=== PATIENT | male | born 1940 | race Caucasian/White ===

== ENCOUNTER → 2016-06-15 | Outpatient (REF) | payer MEDICARE ==
[2016-06-15 12:34] LABS: ALBUMIN/GLOBULIN RATIO 1.29 (1.00-1.93); ALKALINE PHOSPHATASE 56 U/L (45-117); ALT/SGPT 44 U/L (12-78); ANION GAP 13 MEQ/L (8-16); AST/SGOT 20 U/L (15-37); BILIRUBIN,TOTAL 0.4 MG/DL (0.2-1.0); BLOOD UREA NITROGEN 36 MG/DL (7-18); CALCIUM LEVEL 9.2 MG/DL (8.8-10.2); CARBON DIOXIDE LEVEL 24 MEQ/L (21-32); CHLORIDE LEVEL 104 MEQ/L (98-107); CREATININE FOR GFR 1.86 MG/DL (0.70-1.30); FERRITIN 156 NG/ML (26-388); GLOMERULAR FILTRATION RATE 37.9 (>42); GLUCOSE, FASTING 142 MG/DL (83-110); PERCENT SATURATION 19.7 % (19.7-37.4); POTASSIUM SERUM 4.6 MEQ/L (3.5-5.1); SODIUM LEVEL 141 MEQ/L (136-145); TOTAL IRON BINDING CAPACITY 330 UG/DL (250-450); TOTAL PROTEIN 7.1 GM/DL (6.4-8.2)
[2016-06-15 12:39] LABS: VITAMIN B12 LEVEL > 2000 PG/ML (247-911)
[2016-06-15 12:48] LABS: BASO # 0.1 K/mm3 (0.0-0.2); BASO % 0.8 % (0.0-1.0); EOS # 0.2 K/mm3 (0.0-0.50); EOS % 2.3 % (0.0-3.0); LARGE UNSTAINED CELL # 0.3 K/mm3 (0.0-0.4); LARGE UNSTAINED CELL % 2.8 % (0.0-4.0); LYMPH % 22.1 % (24.0-44.0); MEAN CORPUSCULAR HEMOGLOBIN 29.5 pg (27.0-33.0); MEAN CORPUSCULAR HGB CONC 33.4 g/dl (32.0-36.5); MEAN CORPUSCULAR VOLUME 88.3 fl (80.0-96.0); MONO # 0.4 K/mm3 (0.0-0.8); MONO % 4.3 % (0.0-5.0); NEUTROPHILS # 6.1 K/mm3 (1.8-7.7); NEUTROPHILS % 67.7 % (36.0-66.0); PLATELET COUNT, AUTOMATED 328 k/mm3 (150-450); RED CELL DISTRIBUTION WIDTH 13.4 % (11.5-14.5)
== END ==
LOC: M SFHCPLAZ 08:47
PROVIDERS: ATTEND Family Medicine
DX: E11.22 Type 2 diabetes mellitus with diabetic chronic kidney disease (principal); N18.3 Chronic kidney disease, stage 3 (moderate)

== ENCOUNTER → 2016-10-25 | Outpatient (REF) | payer MEDICARE ==
[2016-10-25 14:47] LABS: ALBUMIN 3.9 GM/DL (3.2-5.2); ALBUMIN/GLOBULIN RATIO 1.22 (1.00-1.93); ALKALINE PHOSPHATASE 52 U/L (45-117); ALT/SGPT 50 U/L (12-78); ANION GAP 12 MEQ/L (8-16); AST/SGOT 25 U/L (15-37); BILIRUBIN,TOTAL 0.5 MG/DL (0.2-1.0); BLOOD UREA NITROGEN 24 MG/DL (7-18); CARBON DIOXIDE LEVEL 24 MEQ/L (21-32); CHLORIDE LEVEL 103 MEQ/L (98-107); CHOLESTEROL LEVEL 135 MG/DL (<200); CREATININE FOR GFR 1.68 MG/DL (0.70-1.30); GLOMERULAR FILTRATION RATE 42.6 (>42); GLUCOSE, FASTING 165 MG/DL (83-110); POTASSIUM SERUM 4.6 MEQ/L (3.5-5.1); SODIUM LEVEL 139 MEQ/L (136-145); TOTAL PROTEIN 7.1 GM/DL (6.4-8.2); TRIGLYCERIDES LEVEL 225 MG/DL (<150)
== END ==
LOC: M SFHCPLAZ 08:14
PROVIDERS: ATTEND Family Medicine
DX: E78.2 Mixed hyperlipidemia (principal); E11.9 Type 2 diabetes mellitus without complications; E55.9 Vitamin D deficiency, unspecified

== ENCOUNTER → 2017-02-23 | Outpatient (REF) | payer MEDICARE ==
[2017-02-23 13:22] LABS: ALBUMIN 3.9 GM/DL (3.2-5.2); ALBUMIN/GLOBULIN RATIO 1.18 (1.00-1.93); BILIRUBIN,TOTAL 0.4 MG/DL (0.2-1.0); CREATININE FOR GFR 1.63 MG/DL (0.70-1.30); POTASSIUM SERUM 4.5 MEQ/L (3.5-5.1); TOTAL PROTEIN 7.2 GM/DL (6.4-8.2)
[2017-02-23 13:57] LABS: BASO # 0.1 K/mm3 (0.0-0.2); BASO % 0.7 % (0.0-1.0); EOS # 0.3 K/mm3 (0.0-0.50); LARGE UNSTAINED CELL # 0.3 K/mm3 (0.0-0.4); LARGE UNSTAINED CELL % 2.8 % (0.0-4.0); LYMPH # 2.5 K/mm3 (1.5-4.5); LYMPH % 26.8 % (24.0-44.0); MEAN CORPUSCULAR HEMOGLOBIN 29.9 pg (27.0-33.0); MEAN CORPUSCULAR HGB CONC 33.1 g/dl (32.0-36.5); MEAN CORPUSCULAR VOLUME 90.4 fl (80.0-96.0); MONO # 0.5 K/mm3 (0.0-0.8); MONO % 5.3 % (0.0-5.0); NEUTROPHILS # 5.7 K/mm3 (1.8-7.7); NEUTROPHILS % 61.3 % (36.0-66.0); PLATELET COUNT, AUTOMATED 352 k/mm3 (150-450); WHITE BLOOD COUNT 9.3 K/mm3 (4.0-10.0)
== END ==
LOC: M SFHCPLAZ 08:13
PROVIDERS: ATTEND Family Medicine
DX: N18.3 Chronic kidney disease, stage 3 (moderate) (principal); E11.9 Type 2 diabetes mellitus without complications; Z12.5 Encounter for screening for malignant neoplasm of prostate
CPT/HCPCS: 36415; 80053; 81001; 82043; 83036; 85025; G0103

== ENCOUNTER → 2017-03-10 | Outpatient (CLI) | payer MEDICARE ==
--- NOTE | 2017-03-14 20:46 | SLEEPHOME ---
DATE OF PROCEDURE: 03/10/2017 REFERRING PROVIDER: Dr. Andrade INTERPRETATION: Diagnostic home sleep testing was performed due to concern for the obstructive sleep apnea syndrome. 9 hours and 59 minutes of data were reviewed. There were 4 hours and 59 minutes of time spent in bed. During the interval marked time in bed, there were 305 respiratory events identified of 10 seconds in duration or greater for a respiratory disturbance index of 61.2. The events were complex, 144 central and 14 mixed apneas were recorded. The patient's baseline pulse rate was 50 beats per minute. Pulse rate ranged 44 to 72. Baseline saturation was 88.9%. Lowest oxygen saturation recorded was 65%. Testing was performed in both the supine and nonsupine positions. IMPRESSION: Very abnormal home sleep test with repetitive respiratory events and oxygen desaturations to 65% and a respiratory event index of 61.2 is consistent with obstructive sleep apnea syndrome. The frequency of central events suggests a complex disorder. RECOMMENDATION: Given the severity and complexity of events identified, the patient should be referred for formal sleep evaluation and in laboratory pressure titration. Likely, a bilevel device with backup rate will be necessary given the frequency of central apneas.
== END ==
LOC: M SLEEP HO 11:53
PROVIDERS: ATTEND Family Medicine
DX: G47.33 Obstructive sleep apnea (adult) (pediatric) (principal)

== ENCOUNTER → 2017-07-04 | Outpatient (REF) | payer MEDICARE ==
[2017-07-04 12:34] LABS: ALBUMIN 4.1 GM/DL (3.2-5.2); ALBUMIN/GLOBULIN RATIO 1.24 (1.00-1.93); ALKALINE PHOSPHATASE 50 U/L (45-117); ALT/SGPT 43 U/L (12-78); ANION GAP 7 MEQ/L (8-16); AST/SGOT 23 U/L (7-37); BILIRUBIN,TOTAL 0.6 MG/DL (0.2-1.0); BLOOD UREA NITROGEN 27 MG/DL (7-18); CALCIUM LEVEL 9.3 MG/DL (8.8-10.2); CARBON DIOXIDE LEVEL 27 MEQ/L (21-32); CHLORIDE LEVEL 106 MEQ/L (98-107); CREATININE FOR GFR 1.79 MG/DL (0.70-1.30); GLOMERULAR FILTRATION RATE 39.5 (>42); GLUCOSE, FASTING 145 MG/DL (70-100); POTASSIUM SERUM 4.7 MEQ/L (3.5-5.1); SODIUM LEVEL 140 MEQ/L (136-145); TOTAL PROTEIN 7.4 GM/DL (6.4-8.2)
[2017-07-04 12:40] LABS: BASO # 0.1 10^3/uL (0.0-0.2); BASO % 0.6 % (0.0-1.0); EOS # 0.2 10^3/uL (0.0-0.50); EOS % 2.1 % (0.0-3.0); HEMATOCRIT 44.7 % (42.0-52.0); HEMOGLOBIN 14.8 g/dl (14.0-18.0); IMMATURE GRANULOCYTE # 0.1 10^3/uL (0-0); IMMATURE GRANULOCYTE % 0.5 % (0-0); LYMPH # 2.7 10^3/uL (1.5-4.5); LYMPH % 24.4 % (24.0-44.0); MEAN CORPUSCULAR HEMOGLOBIN 29.1 pg (27.0-33.0); MEAN CORPUSCULAR HGB CONC 33.1 g/dl (32.0-36.5); MEAN CORPUSCULAR VOLUME 87.8 fl (80.0-96.0); MONO # 0.6 10^3/uL (0.0-0.8); MONO % 5.7 % (0.0-5.0); NEUTROPHILS # 7.4 10^3/uL (1.8-7.7); NEUTROPHILS % 66.7 % (36.0-66.0); PLATELET COUNT, AUTOMATED 334 10^3/uL (150-450); RED BLOOD COUNT 5.09 10^6/uL (4.30-6.10); WHITE BLOOD COUNT 11.2 10^3/uL (4.0-10.0)
[2017-07-04 12:41] LABS: ESTIMATED AVERAGE GLUCOSE 160 MG/DL (60-110); HEMOGLOBIN A1c 7.2 %
[2017-07-04 13:06] LABS: TOTAL 25(OH) VITAMIN D 31.5 NG/ML (30.0-100.0)
== END ==
LOC: M SFHCPLAZ 07:50
DX: N18.3 Chronic kidney disease, stage 3 (moderate) (principal); E11.9 Type 2 diabetes mellitus without complications; E55.9 Vitamin D deficiency, unspecified
CPT/HCPCS: 80053

== ENCOUNTER → 2018-03-12 | Outpatient (REF) | payer MEDICARE ==
[2018-03-12 12:39] LABS: BASO # 0.1 10^3/uL (0.0-0.2); EOS # 0.3 10^3/uL (0.0-0.50); EOS % 3.1 % (0.0-3.0); HEMATOCRIT 42.6 % (42.0-52.0); HEMOGLOBIN 14.3 g/dl (13.5-17.5); IMMATURE GRANULOCYTE % 0.5 % (0-3.0); LYMPH # 2.7 10^3/uL (1.5-4.5); LYMPH % 28.6 % (24.0-44.0); MEAN CORPUSCULAR HEMOGLOBIN 29.3 pg (27.0-33.0); MEAN CORPUSCULAR HGB CONC 33.6 g/dl (32.0-36.5); MEAN CORPUSCULAR VOLUME 87.3 fl (80.0-96.0); MONO # 0.6 10^3/uL (0.0-0.8); MONO % 6.6 % (0.0-5.0); NEUTROPHILS # 5.6 10^3/uL (1.8-7.7); NEUTROPHILS % 60.2 % (36.0-66.0); PLATELET COUNT, AUTOMATED 326 10^3/uL (150-450); RED BLOOD COUNT 4.88 10^6/uL (4.30-6.10); RED CELL DISTRIBUTION WIDTH 14.2 % (11.5-14.5); WHITE BLOOD COUNT 9.3 10^3/uL (4.0-10.0)
[2018-03-12 12:59] LABS: ALBUMIN 4.1 GM/DL (3.2-5.2); ALBUMIN/GLOBULIN RATIO 1.37 (1.00-1.93); ALKALINE PHOSPHATASE 48 U/L (45-117); ALT/SGPT 50 U/L (12-78); ANION GAP 9 MEQ/L (8-16); AST/SGOT 26 U/L (7-37); BILIRUBIN,TOTAL 0.4 MG/DL (0.2-1.0); BLOOD UREA NITROGEN 27 MG/DL (7-18); CALCIUM LEVEL 9.7 MG/DL (8.8-10.2); CARBON DIOXIDE LEVEL 25 MEQ/L (21-32); CHLORIDE LEVEL 107 MEQ/L (98-107); CREATININE FOR GFR 1.59 MG/DL (0.70-1.30); GLOMERULAR FILTRATION RATE 45.2 (>42); GLUCOSE, FASTING 135 MG/DL (70-100); MAGNESIUM LEVEL 1.8 MG/DL (1.8-2.4); POTASSIUM SERUM 4.8 MEQ/L (3.5-5.1); SODIUM LEVEL 141 MEQ/L (136-145); TOTAL PROTEIN 7.1 GM/DL (6.4-8.2)
[2018-03-12 13:36] LABS: TOTAL 25(OH) VITAMIN D 33.3 NG/ML (30.0-100.0)
[2018-03-12 13:43] LABS: ESTIMATED AVERAGE GLUCOSE 146 MG/DL (60-110); HEMOGLOBIN A1c 6.7 %
== END ==
LOC: M SFHCPLAZ 08:10
DX: E55.9 Vitamin D deficiency, unspecified (principal); I10 Essential (primary) hypertension; E11.9 Type 2 diabetes mellitus without complications
CPT/HCPCS: 83735

== ENCOUNTER → 2018-07-09 | Outpatient (REF) | payer MEDICARE | LOC: M SFHCPLAZ 08:26 | PROVIDERS: ATTEND Family Medicine | DX: I10 Essential (primary) hypertension (principal); E11.9 Type 2 diabetes mellitus without complications ==

== ENCOUNTER → 2018-07-18 | Outpatient (REF) | payer MEDICARE ==
[2018-07-18 11:48] LABS: BASO # 0.1 10^3/uL (0.0-0.2); BASO % 0.8 % (0.0-1.0); EOS # 0.2 10^3/uL (0.0-0.50); EOS % 2.3 % (0.0-3.0); HEMATOCRIT 43.8 % (42.0-52.0); HEMOGLOBIN 14.2 g/dl (13.5-17.5); LYMPH # 2.5 10^3/uL (1.5-4.5); LYMPH % 23.4 % (24.0-44.0); MEAN CORPUSCULAR HEMOGLOBIN 28.7 pg (27.0-33.0); MEAN CORPUSCULAR HGB CONC 32.4 g/dl (32.0-36.5); MEAN CORPUSCULAR VOLUME 88.7 fl (80.0-96.0); MONO # 0.4 10^3/uL (0.0-0.8); MONO % 4.1 % (0.0-5.0); NEUTROPHILS # 7.3 10^3/uL (1.8-7.7); NEUTROPHILS % 68.8 % (36.0-66.0); PLATELET COUNT, AUTOMATED 396 10^3/uL (150-450); RED BLOOD COUNT 4.94 10^6/uL (4.30-6.10); WHITE BLOOD COUNT 10.6 10^3/uL (4.0-10.0)
[2018-07-18 12:12] LABS: ALBUMIN 3.8 GM/DL (3.2-5.2); BILIRUBIN,TOTAL 0.5 MG/DL (0.2-1.0); CALCIUM LEVEL 9.5 MG/DL (8.8-10.2); CREATININE FOR GFR 1.75 MG/DL (0.70-1.30); GLOMERULAR FILTRATION RATE 40.4 (>42); POTASSIUM SERUM 4.7 MEQ/L (3.5-5.1); TOTAL PROTEIN 7.3 GM/DL (6.4-8.2)
[2018-07-18 12:42] LABS: HEMOGLOBIN A1c 7.2 %
== END ==
LOC: M LABDRAWP 09:05
PROVIDERS: ATTEND Family Medicine
DX: I10 Essential (primary) hypertension (principal); E11.9 Type 2 diabetes mellitus without complications

== ENCOUNTER → 2018-12-03 | Outpatient (REF) | payer MEDICARE ==
[2018-12-03 13:25] LABS: BASO # 0.1 10^3/uL (0.0-0.2); BASO % 0.8 % (0.0-1.0); EOS # 0.2 10^3/uL (0.0-0.50); EOS % 1.9 % (0.0-3.0); HEMATOCRIT 45.7 % (42.0-52.0); HEMOGLOBIN 14.8 g/dl (13.5-17.5); LYMPH # 2.4 10^3/uL (1.5-4.5); LYMPH % 24.9 % (24.0-44.0); MEAN CORPUSCULAR HEMOGLOBIN 29.2 pg (27.0-33.0); MEAN CORPUSCULAR HGB CONC 32.4 g/dl (32.0-36.5); MEAN CORPUSCULAR VOLUME 90.1 fl (80.0-96.0); MONO # 0.6 10^3/uL (0.0-0.8); MONO % 6.1 % (0.0-5.0); NEUTROPHILS # 6.4 10^3/uL (1.8-7.7); NEUTROPHILS % 65.9 % (36.0-66.0); PLATELET COUNT, AUTOMATED 361 10^3/uL (150-450); RED BLOOD COUNT 5.07 10^6/uL (4.30-6.10); WHITE BLOOD COUNT 9.8 10^3/uL (4.0-10.0)
[2018-12-03 13:37] LABS: CHOLESTEROL RISK RATIO 2.346 (<5); FREE T4 0.82 NG/DL (0.76-1.46); PTH INTACT 40.9 PG/ML (18.5-88.0); THYROID STIMULATING HORMONE 3.61 uIU/ML (0.358-3.740); TOTAL 25(OH) VITAMIN D 37.6 NG/ML (30.0-100.0)
[2018-12-03 13:39] LABS: HEMOGLOBIN A1c 6.8 %
== END ==
LOC: M SFHCPLAZ 08:36
PROVIDERS: ATTEND Family Medicine
DX: E03.9 Hypothyroidism, unspecified (principal); I10 Essential (primary) hypertension; E11.9 Type 2 diabetes mellitus without complications

== ENCOUNTER → 2019-06-21 | Outpatient (CLI) | payer MEDICARE ==
[2019-06-21 10:24] LABS: BASO # 0.1 10^3/uL (0.0-0.2); BASO % 0.6 % (0.0-1.0); EOS # 0.4 10^3/uL (0.0-0.5); EOS % 3.1 % (0.0-3.0); HEMATOCRIT 45.4 % (42.0-52.0); HEMOGLOBIN 14.1 g/dl (13.5-17.5); LYMPH # 2.8 10^3/uL (1.5-5.0); LYMPH % 24.9 % (24.0-44.0); MEAN CORPUSCULAR HEMOGLOBIN 28.4 pg (27.0-33.0); MEAN CORPUSCULAR HGB CONC 31.1 g/dl (32.0-36.5); MEAN CORPUSCULAR VOLUME 91.5 fl (80.0-96.0); MONO # 0.6 10^3/uL (0.0-0.8); MONO % 5.3 % (0.0-5.0); NEUTROPHILS # 7.3 10^3/uL (1.5-8.5); NEUTROPHILS % 65.5 % (36.0-66.0); PLATELET COUNT, AUTOMATED 370 10^3/uL (150-450); RED BLOOD COUNT 4.96 10^6/uL (4.30-6.10); WHITE BLOOD COUNT 11.2 10^3/uL (4.0-10.0)
[2019-06-21 11:00] LABS: ALBUMIN 3.7 GM/DL (3.2-5.2); BILIRUBIN,TOTAL 0.5 MG/DL (0.2-1.0); CALCIUM LEVEL 9.2 MG/DL (8.8-10.2); CREATININE FOR GFR 1.73 MG/DL (0.70-1.30); FREE T4 0.87 NG/DL (0.76-1.46); GLOMERULAR FILTRATION RATE 40.9 (>42); POTASSIUM SERUM 4.8 MEQ/L (3.5-5.1); THYROID STIMULATING HORMONE 3.29 uIU/ML (0.358-3.740); TOTAL PROTEIN 7.1 GM/DL (6.4-8.2)
== END ==
LOC: M PLALAB 08:21
PROVIDERS: ATTEND Family Medicine
DX: N18.3 Chronic kidney disease, stage 3 (moderate) (principal); Z12.5 Encounter for screening for malignant neoplasm of prostate
CPT/HCPCS: 36415; 80053; 84439; 84443; 85025; G0103

== ENCOUNTER → 2020-01-06 | Outpatient (REF) | payer MEDICARE ==
[2020-01-31 21:43] LABS: BASO # 0.1 10^3/uL (0.0-0.2); BASO % 0.9 % (0.0-1.0); EOS # 0.3 10^3/uL (0.0-0.5); EOS % 2.4 % (0.0-3.0); HEMATOCRIT 43.9 % (42.0-52.0); HEMOGLOBIN 13.9 g/dl (13.5-17.5); LYMPH # 3.4 10^3/uL (1.5-5.0); LYMPH % 31.3 % (24.0-44.0); MEAN CORPUSCULAR HEMOGLOBIN 29.2 pg (27.0-33.0); MEAN CORPUSCULAR HGB CONC 31.7 g/dl (32.0-36.5); MEAN CORPUSCULAR VOLUME 92.2 fl (80.0-96.0); MONO # 0.7 10^3/uL (0.0-0.8); MONO % 6.9 % (0.0-5.0); NEUTROPHILS # 6.2 10^3/uL (1.5-8.5); NEUTROPHILS % 57.9 % (36.0-66.0); PLATELET COUNT, AUTOMATED 378 10^3/uL (150-450); RED BLOOD COUNT 4.76 10^6/uL (4.30-6.10); WHITE BLOOD COUNT 10.7 10^3/uL (4.0-10.0)
[2020-02-07 10:55] LABS: ALBUMIN 3.7 GM/DL (3.2-5.2); BILIRUBIN,TOTAL 0.5 MG/DL (0.2-1.0); CALCIUM LEVEL 9.2 MG/DL (8.8-10.2); CHOLESTEROL RISK RATIO 2.285 (<5); CREATININE FOR GFR 1.62 MG/DL (0.70-1.30); FREE T4 0.97 NG/DL (0.76-1.46); GLOMERULAR FILTRATION RATE 44.1 (>42); POTASSIUM SERUM 4.9 MEQ/L (3.5-5.1); THYROID STIMULATING HORMONE 2.78 uIU/ML (0.358-3.740)
[2020-02-07 10:57] LABS: HEMOGLOBIN A1c 5.8 %
== END ==
LOC: M SFHCPLAZ 09:54
PROVIDERS: ATTEND Family Medicine
DX: E11.9 Type 2 diabetes mellitus without complications (principal); E03.9 Hypothyroidism, unspecified; E78.2 Mixed hyperlipidemia; N18.3 Chronic kidney disease, stage 3 (moderate); I12.9 Hypertensive chronic kidney disease with stage 1 through stage 4 chronic kidney disease, or unspecified chronic kidney disease

== ENCOUNTER → 2020-05-13 | Outpatient (REF) | payer MEDICARE ==
[2020-05-13 14:27] LABS: ALBUMIN 3.8 GM/DL (3.2-5.2); BILIRUBIN,TOTAL 0.4 MG/DL (0.2-1.0); CALCIUM LEVEL 9.3 MG/DL (8.8-10.2); CHOLESTEROL RISK RATIO 2.489 (<5); CREATININE FOR GFR 1.82 MG/DL (0.70-1.30); GLOMERULAR FILTRATION RATE 38.4 (>42); POTASSIUM SERUM 4.8 MEQ/L (3.5-5.1); TOTAL 25(OH) VITAMIN D 48.2 NG/ML (30.0-100.0); TOTAL PROTEIN 7.1 GM/DL (6.4-8.2)
[2020-05-13 18:30] LABS: HEMOGLOBIN A1c 6.1 %
== END ==
LOC: M PLALAB 09:19
PROVIDERS: ATTEND Family Medicine
DX: E11.9 Type 2 diabetes mellitus without complications (principal); E78.2 Mixed hyperlipidemia; Z12.5 Encounter for screening for malignant neoplasm of prostate; E55.9 Vitamin D deficiency, unspecified; Z79.899 Other long term (current) drug therapy
CPT/HCPCS: 36415; 80053; 80061; 82306; 83036; G0103

== ENCOUNTER → 2020-09-08 | Outpatient (REF) | payer MEDICARE ==
[2020-09-08 12:26] LABS: BASO # 0.1 10^3/uL (0.0-0.2); BASO % 0.7 % (0.0-1.0); EOS # 0.3 10^3/uL (0.0-0.5); EOS % 2.7 % (0.0-3.0); HEMOGLOBIN 13.4 g/dl (13.5-17.5); LYMPH # 2.6 10^3/uL (1.5-5.0); LYMPH % 24.9 % (24.0-44.0); MEAN CORPUSCULAR HGB CONC 31.9 g/dl (32.0-36.5); MEAN CORPUSCULAR VOLUME 90.9 fl (80.0-96.0); MONO # 0.8 10^3/uL (0.0-0.8); MONO % 7.7 % (2.0-8.0); NEUTROPHILS # 6.6 10^3/uL (1.5-8.5); NEUTROPHILS % 63.5 % (36.0-66.0); PLATELET COUNT, AUTOMATED 348 10^3/uL (150-450); RED BLOOD COUNT 4.62 10^6/uL (4.30-6.10); WHITE BLOOD COUNT 10.3 10^3/uL (4.0-10.0)
[2020-09-08 13:03] LABS: HEMOGLOBIN A1c 6.3 %
[2020-09-08 13:05] LABS: FREE T4 0.86 NG/DL (0.76-1.46); PERCENT SATURATION 21.4 % (19.7-50.0); THYROID STIMULATING HORMONE 4.11 uIU/ML (0.358-3.740)
[2020-09-08 14:11] LABS: PTH INTACT 49.4 PG/ML (18.5-88.0)
== END ==
LOC: M PLALAB 09:32
PROVIDERS: ATTEND Family Medicine
DX: N18.30 Chronic kidney disease, stage 3 unspecified (principal); E78.2 Mixed hyperlipidemia; E11.9 Type 2 diabetes mellitus without complications; E55.9 Vitamin D deficiency, unspecified; I11.9 Hypertensive heart disease without heart failure

== ENCOUNTER → 2020-09-08 | Outpatient (CLI) | payer MEDICARE ==
[2020-09-08 12:56] LABS: CALCIUM LEVEL 9.3 MG/DL (8.8-10.2); CREATININE FOR GFR 1.78 MG/DL (0.70-1.30); GLOMERULAR FILTRATION RATE 39.4 (>42); POTASSIUM SERUM 5.4 MEQ/L (3.5-5.1)
== END ==
LOC: M PLALAB 09:20
PROVIDERS: ATTEND Physician Assistant
DX: I11.9 Hypertensive heart disease without heart failure (principal)

== ENCOUNTER → 2021-01-29 | Outpatient (CLI) | payer MEDICARE ==
[2021-01-29 15:02] LABS: ALBUMIN 3.5 GM/DL (3.2-5.2); BILIRUBIN,TOTAL 0.5 MG/DL (0.2-1.0); CALCIUM LEVEL 8.9 MG/DL (8.8-10.2); CHOLESTEROL RISK RATIO 2.478 (<5); CREATININE FOR GFR 1.61 MG/DL (0.70-1.30); FREE T4 0.84 NG/DL (0.76-1.46); GLOMERULAR FILTRATION RATE 44.3 (>42); POTASSIUM SERUM 4.7 MEQ/L (3.5-5.1); THYROID PEROXIDASE ANTIBODY 43.6 U/ML (<60.0); THYROID STIMULATING HORMONE 3.04 uIU/ML (0.358-3.740)
== END ==
LOC: M PLALAB 09:50
PROVIDERS: ATTEND Family Medicine
DX: E78.2 Mixed hyperlipidemia (principal); Z12.5 Encounter for screening for malignant neoplasm of prostate; E11.9 Type 2 diabetes mellitus without complications
CPT/HCPCS: 36415; 80053; 80061; 83036; 83525; 84439; 84443; 86376; G0103

== ENCOUNTER → 2021-07-08 | Outpatient (CLI) | payer MEDICARE ==
[2021-07-08 17:45] LABS: ALBUMIN 3.6 GM/DL (3.2-5.2); BILIRUBIN,TOTAL 0.5 MG/DL (0.2-1.0); CALCIUM LEVEL 9.3 MG/DL (8.8-10.2); CREATININE FOR GFR 1.6 MG/DL (0.70-1.30); GLOMERULAR FILTRATION RATE 44.5 (>35); POTASSIUM SERUM 5.3 MEQ/L (3.5-5.1); TOTAL PROTEIN 6.7 GM/DL (6.4-8.2)
[2021-07-08 17:56] LABS: MALB URINE SIEMENS 9.2 MG/L; MAU/CREAT RATIO 5.1 MCG/MG (0.0-30.0)
[2021-07-08 18:30] LABS: HEMOGLOBIN A1c 5.4 %
[2021-07-09 10:50] LABS: TOTAL 25(OH) VITAMIN D 37.3 NG/ML (30.0-100.0)
[2021-07-09 10:51] LABS: PTH INTACT 45.9 PG/ML (18.5-88.0)
== END ==
LOC: M WUC 15:37
PROVIDERS: ATTEND Family Medicine
DX: E55.9 Vitamin D deficiency, unspecified (principal); E11.9 Type 2 diabetes mellitus without complications; M47.816 Spondylosis without myelopathy or radiculopathy, lumbar region

== ENCOUNTER → 2021-10-04 | Outpatient (CLI) | payer MEDICARE ==
[2021-10-04 19:51] LABS: CK-MB VALUE MASS 2.6 NG/ML (<3.6); MB/CK RELATIVE INDEX 2.77 (< OR =4)
[2021-10-04 19:58] LABS: GLOMERULAR FILTRATION RATE 34.4 (>35)
[2021-10-04 19:59] LABS: ALBUMIN 3.6 GM/DL (3.2-5.2); BILIRUBIN,TOTAL 0.5 MG/DL (0.2-1.0); CALCIUM LEVEL 9.1 MG/DL (8.8-10.2); POTASSIUM SERUM 4.4 MEQ/L (3.5-5.1); TOTAL PROTEIN 6.8 GM/DL (6.4-8.2)
== END ==
LOC: M WUC 14:52
PROVIDERS: ATTEND Physician Assistant
DX: R10.816 Epigastric abdominal tenderness (principal); I25.10 Atherosclerotic heart disease of native coronary artery without angina pectoris

== ENCOUNTER → 2021-10-12 | Outpatient (CLI) | payer MEDICARE | LOC: M WHC 09:06 | PROVIDERS: ATTEND Physician Assistant | DX: R10.816 Epigastric abdominal tenderness (principal); N28.89 Other specified disorders of kidney and ureter ==

== ENCOUNTER → 2022-01-14 | Outpatient (REF) | payer MEDICARE | LOC: M LAB REF 17:01 | PROVIDERS: ATTEND Internal Medicine Nephrology | DX: N18.31 Chronic kidney disease, stage 3a (principal) ==

== ENCOUNTER → 2022-01-26 | Outpatient (CLI) | payer MEDICARE ==
[2022-01-26 15:05] LABS: BASO # 0.1 10^3/uL (0.0-0.2); BASO % 0.9 % (0.0-1.0); EOS # 0.2 10^3/uL (0.0-0.5); EOS % 2.7 % (0.0-3.0); HEMATOCRIT 39.2 % (42.0-52.0); HEMOGLOBIN 12.4 g/dl (13.5-17.5); LYMPH # 2.1 10^3/uL (1.5-5.0); LYMPH % 23.6 % (24.0-44.0); MEAN CORPUSCULAR HEMOGLOBIN 28.2 pg (27.0-33.0); MEAN CORPUSCULAR HGB CONC 31.6 g/dl (32.0-36.5); MEAN CORPUSCULAR VOLUME 89.1 fl (80.0-96.0); MONO # 0.6 10^3/uL (0.0-0.8); MONO % 6.8 % (2.0-8.0); NEUTROPHILS # 5.8 10^3/uL (1.5-8.5); NEUTROPHILS % 65.7 % (36.0-66.0); PLATELET COUNT, AUTOMATED 325 10^3/uL (150-450); WHITE BLOOD COUNT 8.9 10^3/uL (4.0-10.0)
[2022-01-26 15:33] LABS: HEMOGLOBIN A1c 5.2 %
[2022-01-26 15:52] LABS: FREE T4 0.96 NG/DL (0.76-1.46); MAGNESIUM LEVEL 1.7 MG/DL (1.8-2.4); THYROID STIMULATING HORMONE 2.06 uIU/ML (0.358-3.740)
== END ==
LOC: M WUC 11:33
PROVIDERS: ATTEND Family Medicine
DX: D50.9 Iron deficiency anemia, unspecified (principal); E11.9 Type 2 diabetes mellitus without complications; I13.2 Hypertensive heart and chronic kidney disease with heart failure and with stage 5 chronic kidney disease, or end stage renal disease

== ENCOUNTER → 2022-05-02 | Outpatient (CLI) | payer MEDICARE | LOC: M RAD 09:34 | PROVIDERS: ATTEND Internal Medicine Nephrology | DX: N18.31 Chronic kidney disease, stage 3a (principal); N28.1 Cyst of kidney, acquired ==

== ENCOUNTER → 2022-08-11 | Outpatient (CLI) | payer MEDICARE ==
[2022-08-11 11:39] LABS: BASO # 0.1 10^3/uL (0.0-0.2); BASO % 0.8 % (0.0-1.0); EOS # 0.2 10^3/uL (0.0-0.5); EOS % 1.6 % (0.0-3.0); HEMATOCRIT 45.9 % (42.0-52.0); HEMOGLOBIN 14.9 g/dl (13.5-17.5); LYMPH # 2.3 10^3/uL (1.5-5.0); MEAN CORPUSCULAR HEMOGLOBIN 28.8 pg (27.0-33.0); MEAN CORPUSCULAR HGB CONC 32.5 g/dl (32.0-36.5); MEAN CORPUSCULAR VOLUME 88.8 fl (80.0-96.0); MONO # 0.5 10^3/uL (0.0-0.8); MONO % 5.1 % (2.0-8.0); NEUTROPHILS # 6.8 10^3/uL (1.5-8.5); NEUTROPHILS % 69.2 % (36.0-66.0); PLATELET COUNT, AUTOMATED 274 10^3/uL (150-450); RED BLOOD COUNT 5.17 10^6/uL (4.30-6.10); WHITE BLOOD COUNT 9.9 10^3/uL (4.0-10.0)
[2022-08-11 12:05] LABS: C REACTIVE PROTEIN QUANTITATIV < 0.40 MG/DL (<1.0)
[2022-08-11 12:06] LABS: CPK CREATINE PHOSPHOKINASE 54 U/L (46-171)
[2022-08-11 12:09] LABS: ALBUMIN 3.7 G/DL (3.2-5.2); ALKALINE PHOSPHATASE 55 U/L (46-116); ALT/SGPT 21 U/L (7.0-40); AST/SGOT 16 U/L (<34); BILIRUBIN,TOTAL 0.8 MG/DL (0.3-1.2); BLOOD UREA NITROGEN 28 MG/DL (9-23); CALCIUM LEVEL 9.1 MG/DL (8.3-10.6); CARBON DIOXIDE LEVEL 30 MMOL/L (20-31); CHLORIDE LEVEL 102 MMOL/L (98-107); CHOLESTEROL LEVEL 108 MG/DL (<200); CREATININE FOR GFR 1.53 MG/DL (0.70-1.30); FERRITIN 76.1 NG/ML (10.5-307.3); GLOMERULAR FILTRATION RATE 46.7 (>35); GLUCOSE, FASTING 86 MG/DL (74-106); HDL CHOLESTEROL 46.9 MG/DL (>40); LDL CHOLESTEROL 44.9 MG/DL (<100); NON-HDL-C 61 MG/DL; POTASSIUM SERUM 4.5 MMOL/L (3.5-5.1); SODIUM LEVEL 138 MMOL/L (136-145); TOTAL PROTEIN 6.9 G/DL (5.7-8.2); TRIGLYCERIDES LEVEL 81 MG/DL (<150)
[2022-08-11 12:13] LABS: HEMOGLOBIN A1c 5.4 % (4.0-6.0)
== END ==
LOC: M WUC 09:13
PROVIDERS: ATTEND Family Medicine
DX: E78.2 Mixed hyperlipidemia (principal); D50.9 Iron deficiency anemia, unspecified; E11.9 Type 2 diabetes mellitus without complications

== ENCOUNTER → 2023-04-11 | Outpatient (CLI) | payer MEDICARE ==
[2023-04-11 13:43] LABS: BASO # 0.1 10^3/uL (0.0-0.2); BASO % 0.7 % (0.0-1.0); EOS # 0.2 10^3/uL (0.0-0.5); EOS % 2.8 % (0.0-3.0); HEMATOCRIT 45.5 % (42.0-52.0); HEMOGLOBIN 14.9 g/dl (13.5-17.5); LYMPH % 35.4 % (24.0-44.0); MEAN CORPUSCULAR HEMOGLOBIN 28.9 pg (27.0-33.0); MEAN CORPUSCULAR HGB CONC 32.7 g/dl (32.0-36.5); MEAN CORPUSCULAR VOLUME 88.2 fl (80.0-96.0); MONO # 0.5 10^3/uL (0.0-0.8); MONO % 5.9 % (2.0-8.0); NEUTROPHILS # 4.7 10^3/uL (1.5-8.5); PLATELET COUNT, AUTOMATED 281 10^3/uL (150-450); RED BLOOD COUNT 5.16 10^6/uL (4.30-6.10); WHITE BLOOD COUNT 8.5 10^3/uL (4.0-10.0)
[2023-04-11 14:08] LABS: ALBUMIN 3.6 G/DL (3.2-5.2); ALKALINE PHOSPHATASE 54 U/L (46-116); ALT/SGPT 27 U/L (7.0-40); AST/SGOT 22 U/L (<34); BILIRUBIN,TOTAL 0.7 MG/DL (0.3-1.2); BLOOD UREA NITROGEN 30 MG/DL (9-23); CARBON DIOXIDE LEVEL 28 MMOL/L (20-31); CHLORIDE LEVEL 103 MMOL/L (98-107); CREATININE FOR GFR 1.34 MG/DL (0.70-1.30); GLOMERULAR FILTRATION RATE 54.3 (>35); GLUCOSE, FASTING 74 MG/DL (74-106); MAGNESIUM LEVEL 2.1 MG/DL (1.8-2.4); POTASSIUM SERUM 4.9 MMOL/L (3.5-5.1); SODIUM LEVEL 139 MMOL/L (136-145); TOTAL PROTEIN 6.7 G/DL (5.7-8.2)
[2023-04-11 14:15] LABS: FERRITIN 74.7 NG/ML (10.5-307.3)
[2023-04-11 14:16] LABS: TOTAL 25(OH) VITAMIN D 41.4 NG/ML (20.0-100.0); VITAMIN B12 LEVEL > 2000 PG/ML (211-911)
[2023-04-11 15:06] LABS: HEMOGLOBIN A1c 4.7 % (4.0-6.0)
== END ==
LOC: M WUC 10:17
PROVIDERS: ATTEND Family Medicine
DX: D50.9 Iron deficiency anemia, unspecified (principal); I12.9 Hypertensive chronic kidney disease with stage 1 through stage 4 chronic kidney disease, or unspecified chronic kidney disease; Z12.5 Encounter for screening for malignant neoplasm of prostate; E55.9 Vitamin D deficiency, unspecified; G20.C Parkinsonism, unspecified; F03.90 Unspecified dementia, unspecified severity, without behavioral disturbance, psychotic disturbance, mood disturbance, and anxiety; E11.22 Type 2 diabetes mellitus with diabetic chronic kidney disease; I25.10 Atherosclerotic heart disease of native coronary artery without angina pectoris; E78.2 Mixed hyperlipidemia; M47.816 Spondylosis without myelopathy or radiculopathy, lumbar region; E66.9 Obesity, unspecified; G25.0 Essential tremor; N18.30 Chronic kidney disease, stage 3 unspecified; R27.0 Ataxia, unspecified; K76.0 Fatty (change of) liver, not elsewhere classified
CPT/HCPCS: 36415; 80053; 82306; 82607; 82728; 83036; 83735; 83880; 83970; 85025; G0103

== ENCOUNTER → 2023-04-13 | Outpatient (REF) | payer MEDICARE | LOC: M SFHCPLAZ 16:58 | PROVIDERS: ATTEND Family Medicine | DX: E11.9 Type 2 diabetes mellitus without complications (principal); I10 Essential (primary) hypertension; E78.2 Mixed hyperlipidemia; K76.0 Fatty (change of) liver, not elsewhere classified ==

== ENCOUNTER 2023-05-11 22:17 | Inpatient (IN) | payer MEDICARE ==
[~2023-05-11] VITALS: Ht 175.3 cm; Wt 92.1 kg
[2023-05-12 03:44] LABS: BASO # 0.1 10^3/uL (0.0-0.2); BASO % 0.6 % (0.0-1.0); EOS # 0.7 10^3/uL (0.0-0.5); EOS % 5.1 % (0.0-3.0); HEMATOCRIT 42.6 % (42.0-52.0); HEMOGLOBIN 13.9 g/dl (13.5-17.5); LYMPH % 15.1 % (24.0-44.0); MEAN CORPUSCULAR HEMOGLOBIN 29.1 pg (27.0-33.0); MEAN CORPUSCULAR HGB CONC 32.6 g/dl (32.0-36.5); MEAN CORPUSCULAR VOLUME 89.3 fl (80.0-96.0); MONO # 0.7 10^3/uL (0.0-0.8); MONO % 5.7 % (2.0-8.0); NEUTROPHILS # 9.5 10^3/uL (1.5-8.5); NEUTROPHILS % 73.2 % (36.0-66.0); PLATELET COUNT, AUTOMATED 276 10^3/uL (150-450); RED BLOOD COUNT 4.77 10^6/uL (4.30-6.10)
[2023-05-12 04:08] LABS: LIPASE 37 U/L (12-53)
[2023-05-12 04:09] LABS: CK-MB VALUE MASS < 1.0 NG/ML (<3.6)
[2023-05-12 04:10] LABS: ALBUMIN 3.6 G/DL (3.2-5.2); ALKALINE PHOSPHATASE 57 U/L (46-116); ALT/SGPT 24 U/L (7.0-40); AST/SGOT 18 U/L (<34); BILIRUBIN,DIRECT 0.2 MG/DL (<0.4); BILIRUBIN,TOTAL 0.6 MG/DL (0.3-1.2); BLOOD UREA NITROGEN 36 MG/DL (9-23); CARBON DIOXIDE LEVEL 28 MMOL/L (20-31); CHLORIDE LEVEL 107 MMOL/L (98-107); CPK CREATINE PHOSPHOKINASE 154 U/L (46-171); CREATININE FOR GFR 1.51 MG/DL (0.70-1.30); GLOMERULAR FILTRATION RATE 47.3 (>35); GLUCOSE, FASTING 112 MG/DL (74-106); MB/CK RELATIVE INDEX 0.64 (< OR =4); POTASSIUM SERUM 4.9 MMOL/L (3.5-5.1); SODIUM LEVEL 141 MMOL/L (136-145); TOTAL PROTEIN 7.1 G/DL (5.7-8.2)
[2023-05-12 04:21] LABS: RSV AMPLIFICATION NEGATIVE (NEGATIVE)
[2023-05-12 05:40] LABS: INR 1.17; PROTHROMBIN TIME 14.6 SECONDS (12.5-14.5)
[2023-05-12 05:41] LABS: PARTIAL THROMBOPLASTIN TIME 29.7 SECONDS (24.8-34.2)
[2023-05-12] MEDS ORDERED: hydrALAZINE 20MG/ML 1ML VIAL IV PRN (06:10)
[2023-05-12] MEDS ORDERED: GLUCAGON INJ 1MG VIAL SC PRN (06:10)
[2023-05-12] MEDS ORDERED: LR 1,000 ML IV SCH (06:10)
[2023-05-12] MEDS ORDERED: ONDANSETRON 4MG 2ML VIAL IV PRN (06:10)
[2023-05-12] MEDS ORDERED: GLUCOSE 4GM CHEW TABLET PO PRN (06:10)
[2023-05-12] MEDS ORDERED: DEXTROSE 50% 50ML SYRINGE IV PRN (06:10)
[2023-05-12] MEDS ORDERED: UNRESOLVED CLARIFICATION ENTRY XX STA (06:20)
[2023-05-12] MEDS: HYDROMORPHONE HCL 0.5 MG/ 0.5 ML SYRINGE IV PRN ×4 (08:09→20:08)
[2023-05-12] MEDS: METOPROLOL TART 25 MG TABLET PO SCH ×2 (08:10→20:07)
[2023-05-12] MEDS ORDERED: ACET650T61 PO (08:41)
[2023-05-12] MEDS ORDERED: ATOR40TA75 PO (08:41)
[2023-05-12] MEDS ORDERED: BACL10TA2 PO (08:41)
[2023-05-12] MEDS ORDERED: ASPI-1 PO (08:41)
[2023-05-12] MEDS ORDERED: PREG50CA3 PO (08:41)
[2023-05-12] MEDS ORDERED: TRAZ-257 PO (08:41)
[2023-05-12] MEDS ORDERED: D32000CA PO (08:41)
[2023-05-12] MEDS ORDERED: ISOS20TA53 PO (08:41)
[2023-05-12] MEDS ORDERED: POTA99CA2 PO (08:41)
[2023-05-12] MEDS ORDERED: AMLO1TAB25 PO (08:41)
[2023-05-12] MEDS ORDERED: CALC500T68 PO (08:41)
[2023-05-12] MEDS ORDERED: CARB25TA9 PO (08:41)
[2023-05-12] MEDS ORDERED: MAGN400C2 PO (08:41)
[2023-05-12] MEDS ORDERED: METO50TA7 PO (08:41)
[2023-05-12] MEDS ORDERED: HOME MED LIST COMPLETE! XX SCH (08:45)
[2023-05-12] MEDS: INSULIN LISPRO (NovoLOG) PER UNIT SC SCH ×3 (08:54→18:00)
[2023-05-12] MEDS: BACLOFEN 10 MG TAB PO SCH ×2 (09:37→20:05)
[2023-05-12] MEDS: ASPIRIN 325 MG TAB PO SCH (09:37)
[2023-05-12] MEDS: ATORVASTATIN 20 MG TAB PO SCH (09:37)
[2023-05-12] MEDS: MAGNESIUM OXIDE 400MG TAB (MAG-OX) PO SCH (09:37)
[2023-05-12 09:46] LABS: BASO # 0.1 10^3/uL (0.0-0.2); BASO % 0.7 % (0.0-1.0); EOS # 0.6 10^3/uL (0.0-0.5); EOS % 5.7 % (0.0-3.0); HEMATOCRIT 42.8 % (42.0-52.0); HEMOGLOBIN 13.8 g/dl (13.5-17.5); LYMPH # 1.6 10^3/uL (1.5-5.0); LYMPH % 14.5 % (24.0-44.0); MEAN CORPUSCULAR HEMOGLOBIN 28.8 pg (27.0-33.0); MEAN CORPUSCULAR HGB CONC 32.2 g/dl (32.0-36.5); MEAN CORPUSCULAR VOLUME 89.4 fl (80.0-96.0); MONO # 0.6 10^3/uL (0.0-0.8); MONO % 5.6 % (2.0-8.0); NEUTROPHILS # 7.9 10^3/uL (1.5-8.5); NEUTROPHILS % 73.2 % (36.0-66.0); PLATELET COUNT, AUTOMATED 224 10^3/uL (150-450); RED BLOOD COUNT 4.79 10^6/uL (4.30-6.10); WHITE BLOOD COUNT 10.9 10^3/uL (4.0-10.0)
[2023-05-12 10:07] LABS: CALCIUM LEVEL 8.7 MG/DL (8.3-10.6); CREATININE FOR GFR 1.37 MG/DL (0.70-1.30); POTASSIUM SERUM 5.4 MMOL/L (3.5-5.1)
[2023-05-12] MEDS: ISOSORBIDE MONONITRATE 10MG TABLET PO SCH ×2 (10:26→17:00)
[2023-05-12] MEDS: SINEMET 25-100 MG TAB PO SCH ×2 (11:30→20:05)
[2023-05-12 16:05] LABS: CALCIUM LEVEL 8.6 MG/DL (8.3-10.6); CREATININE FOR GFR 1.3 MG/DL (0.70-1.30); GLOMERULAR FILTRATION RATE 56.3 (>35); POTASSIUM SERUM 5.4 MMOL/L (3.5-5.1)
[2023-05-12 17:04] VITALS: BP 154/73; TEMP 98.5; O2SAT 96
[2023-05-12] MEDS: traZODone 100 MG TAB PO SCH (20:05)
[2023-05-12] MEDS: PREGABALIN 50 MG CAP (LYRICA) PO SCH (20:06)
[2023-05-12 22:00] VITALS: BP 156/65; TEMP 98.8; O2SAT 97
[2023-05-13] VITALS (7 sets, daily range): BP systolic 135–176; BP diastolic 35–74; TEMP 97.3–97.9; O2SAT 92–96
[2023-05-13] MEDS: INSULIN LISPRO (NovoLOG) PER UNIT SC SCH ×2 (06:00)
[2023-05-13 07:03] LABS: BASO # 0.1 10^3/uL (0.0-0.2); BASO % 0.5 % (0.0-1.0); EOS # 0.8 10^3/uL (0.0-0.5); EOS % 6.6 % (0.0-3.0); HEMOGLOBIN 13.6 g/dl (13.5-17.5); MEAN CORPUSCULAR HEMOGLOBIN 29.4 pg (27.0-33.0); MEAN CORPUSCULAR HGB CONC 33.2 g/dl (32.0-36.5); MEAN CORPUSCULAR VOLUME 88.6 fl (80.0-96.0); MONO # 0.8 10^3/uL (0.0-0.8); MONO % 7.4 % (2.0-8.0); NEUTROPHILS # 7.6 10^3/uL (1.5-8.5); NEUTROPHILS % 67.2 % (36.0-66.0); PLATELET COUNT, AUTOMATED 253 10^3/uL (150-450); RED BLOOD COUNT 4.63 10^6/uL (4.30-6.10); WHITE BLOOD COUNT 11.3 10^3/uL (4.0-10.0)
[2023-05-13 07:30] LABS: CALCIUM LEVEL 8.7 MG/DL (8.3-10.6); CREATININE FOR GFR 1.3 MG/DL (0.70-1.30); GLOMERULAR FILTRATION RATE 56.3 (>35); POTASSIUM SERUM 4.9 MMOL/L (3.5-5.1)
[2023-05-13] MEDS: SINEMET 25-100 MG TAB PO SCH ×2 (08:33→21:38)
[2023-05-13] MEDS: BACLOFEN 10 MG TAB PO SCH ×2 (08:33→21:38)
[2023-05-13] MEDS: MAGNESIUM OXIDE 400MG TAB (MAG-OX) PO SCH (08:34)
[2023-05-13] MEDS: ATORVASTATIN 20 MG TAB PO SCH (08:35)
[2023-05-13] MEDS: METOPROLOL TART 25 MG TABLET PO SCH ×2 (08:37→21:38)
[2023-05-13] MEDS: HYDROMORPHONE HCL 0.5 MG/ 0.5 ML SYRINGE IV PRN (08:46)
[2023-05-13] MEDS ORDERED: TRANEXAMIC ACID 100 MG/ML 10ML VIAL As Ordered ONE (10:14)
[2023-05-13] MEDS ORDERED: VANCOMYCIN 1000MG/20ML VIAL As Ordered ONE (10:14)
[2023-05-13] MEDS ORDERED: ceFAZolin 2 GM/D5W 50 ML IV BAG As Ordered ONE (10:15)
[2023-05-13] MEDS: ISOSORBIDE MONONITRATE 10MG TABLET PO SCH ×2 (11:12→18:31)
[2023-05-13] MEDS ORDERED: **hydrALAZINE HCL** 25 MG TAB PO PRN (12:00)
[2023-05-13] MEDS ORDERED: MORPHINE 2 MG/ML 1ML VIAL IV PRN (12:00)
[2023-05-13] MEDS ORDERED: ETOMIDATE INJ 20MG/10ML VIAL As Ordered ONE (12:29)
[2023-05-13] MEDS ORDERED: ALBUTEROL 6.7GM INHALER **FOR ANES. CART/OMNICELL ONLY As Ordered ONE (13:08)
[2023-05-13] MEDS ORDERED: LIDOCAINE 2% 100MG/5ML SDV (FOR ANES.) As Ordered ONE (13:13)
[2023-05-13] MEDS ORDERED: METOCLOPRAMIDE INJ 10MG/2ML VIAL As Ordered ONE (13:13)
[2023-05-13] MEDS ORDERED: propofoL 200 MG/20 ML VIAL As Ordered ONE (13:13)
[2023-05-13] MEDS ORDERED: fentaNYL 250 MCG/5 ML INJECTION As Ordered ONE (13:13)
[2023-05-13] MEDS ORDERED: ROCURONIUM BROMIDE 50MG/5ML VIAL As Ordered ONE ×3 (13:13→15:19)
[2023-05-13] MEDS ORDERED: SEVOFLURANE INHAL SOLN 250 ML BTL As Ordered ONE (13:13)
[2023-05-13] MEDS ORDERED: SUGAMMADEX SODIUM 500 MG/5 ML VIAL (BRIDION) As Ordered ONE (13:13)
[2023-05-13] MEDS ORDERED: ONDANSETRON 4MG 2ML VIAL As Ordered ONE (13:13)
[2023-05-13] MEDS ORDERED: ACETAMINOPHEN 1000MG 100ML IV BAG As Ordered ONE (13:14)
[2023-05-13] MEDS ORDERED: ePHEDrine SULFATE 25 MG/5 ML(5MG/ML) SYRINGE As Ordered ONE (13:20)
[2023-05-13] MEDS ORDERED: PHENYLephrine 500MCG 5ML (100MCG/ML) SYRINGE As Ordered ONE (14:26)
[2023-05-13] MEDS: PREGABALIN 50 MG CAP (LYRICA) PO SCH (21:38)
[2023-05-13] MEDS: traZODone 100 MG TAB PO SCH (21:38)
[2023-05-14 06:00] VITALS: BP 141/52; TEMP 97.9; O2SAT 96
[2023-05-14] MEDS: ISOSORBIDE MONONITRATE 10MG TABLET PO SCH ×2 (06:30→16:27)
[2023-05-14] MEDS: ACETAMINOPHEN TAB 650MG DOSE (2X325MG) PO PRN ×2 (06:30→20:29)
[2023-05-14 06:55] LABS: BASO % 0.2 % (0.0-1.0); EOS # 0.1 10^3/uL (0.0-0.5); EOS % 0.5 % (0.0-3.0); HEMATOCRIT 37.7 % (42.0-52.0); HEMOGLOBIN 12.2 g/dl (13.5-17.5); LYMPH # 1.4 10^3/uL (1.5-5.0); LYMPH % 12.6 % (24.0-44.0); MEAN CORPUSCULAR HEMOGLOBIN 28.9 pg (27.0-33.0); MEAN CORPUSCULAR HGB CONC 32.4 g/dl (32.0-36.5); MEAN CORPUSCULAR VOLUME 89.3 fl (80.0-96.0); MONO # 0.8 10^3/uL (0.0-0.8); MONO % 7.5 % (2.0-8.0); NEUTROPHILS # 8.6 10^3/uL (1.5-8.5); NEUTROPHILS % 78.9 % (36.0-66.0); PLATELET COUNT, AUTOMATED 266 10^3/uL (150-450); RED BLOOD COUNT 4.22 10^6/uL (4.30-6.10); WHITE BLOOD COUNT 10.9 10^3/uL (4.0-10.0)
[2023-05-14 07:04] LABS: CALCIUM LEVEL 8.5 MG/DL (8.3-10.6); CREATININE FOR GFR 1.38 MG/DL (0.70-1.30); GLOMERULAR FILTRATION RATE 52.5 (>35); MAGNESIUM LEVEL 2.1 MG/DL (1.8-2.4); POTASSIUM SERUM 5.2 MMOL/L (3.5-5.1)
[2023-05-14] MEDS ORDERED: PATIROMER SORBITEX CALCIUM 8.4 GM POWDER PACKET (VELTASSA) PO ONE (07:30)
[2023-05-14] MEDS ORDERED: SODIUM CHLORIDE 0.9% 1000ML IV ONE (07:30)
[2023-05-14] MEDS: SINEMET 25-100 MG TAB PO SCH ×2 (08:15→20:30)
[2023-05-14] MEDS: ATORVASTATIN 20 MG TAB PO SCH (08:15)
[2023-05-14] MEDS: MAGNESIUM OXIDE 400MG TAB (MAG-OX) PO SCH (08:15)
[2023-05-14] MEDS: BACLOFEN 10 MG TAB PO SCH ×2 (08:15→20:28)
[2023-05-14] MEDS: METOPROLOL TART 25 MG TABLET PO SCH ×2 (08:19→20:30)
[2023-05-14] MEDS: ASPIRIN 325 MG TAB PO SCH (09:31)
[2023-05-14] MEDS: PERCOCET 5MG/325MG TAB PO PRN (09:32)
[2023-05-14 11:59] VITALS: BP 137/57; O2SAT 93
[2023-05-14] MEDS: HEPARIN SOD (PORCINE) 5000UNITS/ML 1ML VIAL/SYRINGE SQ SCH ×2 (13:14→20:28)
[2023-05-14] MEDS: traZODone 100 MG TAB PO SCH (20:30)
[2023-05-14] MEDS: PREGABALIN 50 MG CAP (LYRICA) PO SCH (20:30)
[2023-05-14 22:00] VITALS: BP 168/54; TEMP 98.6; O2SAT 95
[2023-05-15] MEDS: ACETAMINOPHEN TAB 650MG DOSE (2X325MG) PO PRN (04:55)
[2023-05-15 06:00] VITALS: BP 163/57; TEMP 98.4; O2SAT 94
[2023-05-15] MEDS: HEPARIN SOD (PORCINE) 5000UNITS/ML 1ML VIAL/SYRINGE SQ SCH ×3 (06:50→21:22)
[2023-05-15] MEDS: ISOSORBIDE MONONITRATE 10MG TABLET PO SCH (06:50)
[2023-05-15 07:40] LABS: BASO % 0.4 % (0.0-1.0); EOS # 0.5 10^3/uL (0.0-0.5); EOS % 4.5 % (0.0-3.0); HEMATOCRIT 34.2 % (42.0-52.0); HEMOGLOBIN 11.1 g/dl (13.5-17.5); LYMPH # 1.7 10^3/uL (1.5-5.0); MEAN CORPUSCULAR HEMOGLOBIN 29.1 pg (27.0-33.0); MEAN CORPUSCULAR HGB CONC 32.5 g/dl (32.0-36.5); MEAN CORPUSCULAR VOLUME 89.5 fl (80.0-96.0); MONO # 0.9 10^3/uL (0.0-0.8); MONO % 8.5 % (2.0-8.0); NEUTROPHILS # 7.6 10^3/uL (1.5-8.5); NEUTROPHILS % 70.3 % (36.0-66.0); PLATELET COUNT, AUTOMATED 266 10^3/uL (150-450); RED BLOOD COUNT 3.82 10^6/uL (4.30-6.10); WHITE BLOOD COUNT 10.8 10^3/uL (4.0-10.0)
[2023-05-15 08:09] LABS: CREATININE FOR GFR 1.5 MG/DL (0.70-1.30); GLOMERULAR FILTRATION RATE 47.7 (>35); MAGNESIUM LEVEL 1.9 MG/DL (1.8-2.4); POTASSIUM SERUM 4.7 MMOL/L (3.5-5.1)
[2023-05-15] MEDS: SINEMET 25-100 MG TAB PO SCH (08:55)
[2023-05-15] MEDS: METOPROLOL TART 25 MG TABLET PO SCH (08:55)
[2023-05-15] MEDS: ATORVASTATIN 20 MG TAB PO SCH (08:56)
[2023-05-15] MEDS: BACLOFEN 10 MG TAB PO SCH (08:56)
[2023-05-15] MEDS: MAGNESIUM OXIDE 400MG TAB (MAG-OX) PO SCH (08:56)
[2023-05-15] MEDS: ASPIRIN 325 MG TAB PO SCH (08:56)
[2023-05-15] MEDS: PERCOCET 5MG/325MG TAB PO PRN (09:16)
[2023-05-15] MEDS: INSULIN LISPRO (NovoLOG) PER UNIT SC SCH ×2 (12:00→18:00)
[2023-05-15 14:00] VITALS: BP 163/59; TEMP 98.2; O2SAT 97
[2023-05-15] MEDS ORDERED: NS 1,000 ML IV ONE (14:05)
[2023-05-15 14:22] LABS: ABG BASE EXCESS 2.8 (-2.0-2.0); ABG HCO3 27.6 MMOL/L (22.0-26.0); ABG PARTIAL PRESSURE CO2 43.5 mmHg (35.0-45.0); ABG PARTIAL PRESSURE O2 62.4 mmHg (75.0-100.0); ABG STANDARD HCO3 26.8 MMOL/L. (22.0-26.0); ABG pH (ARTERIAL) 7.421 UNITS (7.350-7.450)
[2023-05-15] MEDS ORDERED: DEXTROSE 50% 50ML SYRINGE IV PRN (14:25)
[2023-05-15] MEDS ORDERED: GLUCOSE 4GM CHEW TABLET PO PRN (14:25)
[2023-05-15] MEDS ORDERED: ACETAMINOPHEN *IV* 500 MG in IV 1 EA IV PRN (14:25)
[2023-05-15] MEDS ORDERED: GLUCAGON INJ 1MG VIAL SC PRN (14:25)
[2023-05-15] MEDS ORDERED: D5W/0.9% SODIUM CHLORIDE 1,000 ML IV SCH (14:25)
[2023-05-15 15:30] VITALS: BP 152/70; TEMP 99.5; O2SAT 96
[2023-05-15] MEDS ORDERED: VANCOMYCIN HCL 1,000 MG, VIAL MATE ADAPTER 1 EACH in D5W 250 ML IV SCH (16:00)
[2023-05-15] MEDS ORDERED: VANCOMYCIN HCL 750 MG, VIAL MATE ADAPTER 1 EACH in D5W 250 ML IV ONE (18:00)
[2023-05-15 20:00] VITALS: BP 139/81; TEMP 98.2; O2SAT 96
[2023-05-15] MEDS: IPRATROPIUM 0.5MG/ALBUTEROL 2.5MG INH SOL UD 3ML (DUONEB) NEB SCH (20:00)
[2023-05-15] MEDS ORDERED: VANCOMYCIN HCL 500 MG in D5W MINI-BAG PLUS 100 ML IV ONE (20:00)
[2023-05-15] MEDS: CEFEPIME HCL 2 GM in D5W MINI-BAG PLUS 50 ML IV SCH (20:28)
[2023-05-16] VITALS: BP 153/70; TEMP 97.6; O2SAT 95
[2023-05-16] MEDS: IPRATROPIUM 0.5MG/ALBUTEROL 2.5MG INH SOL UD 3ML (DUONEB) NEB SCH ×4 (01:59→13:27)
[2023-05-16] MEDS: CEFEPIME HCL 2 GM in D5W MINI-BAG PLUS 50 ML IV SCH (02:45)
[2023-05-16 04:00] VITALS: BP 162/70; TEMP 97.6; O2SAT 93
[2023-05-16] MEDS: INSULIN LISPRO (NovoLOG) PER UNIT SC SCH ×2 (04:55)
[2023-05-16] MEDS: HEPARIN SOD (PORCINE) 5000UNITS/ML 1ML VIAL/SYRINGE SQ SCH ×2 (04:58→12:35)
[2023-05-16 05:47] LABS: BASO % 0.4 % (0.0-1.0); EOS # 0.4 10^3/uL (0.0-0.5); HEMATOCRIT 34.9 % (42.0-52.0); HEMOGLOBIN 11.4 g/dl (13.5-17.5); LYMPH # 1.5 10^3/uL (1.5-5.0); LYMPH % 16.3 % (24.0-44.0); MEAN CORPUSCULAR HEMOGLOBIN 29.3 pg (27.0-33.0); MEAN CORPUSCULAR HGB CONC 32.7 g/dl (32.0-36.5); MEAN CORPUSCULAR VOLUME 89.7 fl (80.0-96.0); MONO # 0.7 10^3/uL (0.0-0.8); MONO % 7.7 % (2.0-8.0); NEUTROPHILS # 6.7 10^3/uL (1.5-8.5); NEUTROPHILS % 71.3 % (36.0-66.0); RED BLOOD COUNT 3.89 10^6/uL (4.30-6.10); WHITE BLOOD COUNT 9.4 10^3/uL (4.0-10.0)
[2023-05-16 06:15] LABS: CALCIUM LEVEL 8.1 MG/DL (8.3-10.6); CREATININE FOR GFR 1.32 MG/DL (0.70-1.30); GLOMERULAR FILTRATION RATE 55.3 (>35); POTASSIUM SERUM 4.7 MMOL/L (3.5-5.1)
[2023-05-16 07:46] VITALS: BP 143/84; TEMP 98.1; O2SAT 93
[2023-05-16] MEDS ORDERED: VANCOMYCIN HCL 1,000 MG, VIAL MATE ADAPTER 1 EACH in D5W 250 ML IV SCH (08:00)
[2023-05-16] MEDS ORDERED: ASPIRIN 325 MG TAB PO SCH (09:00)
[2023-05-16] MEDS ORDERED: METOPROLOL TART 25 MG TABLET PO SCH (09:00)
[2023-05-16] MEDS ORDERED: SINEMET 25-100 MG TAB PO SCH (09:00)
[2023-05-16] MEDS ORDERED: ATORVASTATIN 20 MG TAB PO SCH (09:00)
[2023-05-16 11:34] VITALS: BP 149/63; TEMP 97.2; O2SAT 96
[2023-05-16 12:35] VITALS: BP 149/63
[2023-05-16 15:47] VITALS: BP 146/62; TEMP 98.2; O2SAT 95
== END 2023-05-16 18:32 | DRG 521 ==
LOC: M ED 22:17 → M ED INP 05-12 06:10 → ENRESERV 05-12 15:01 → M MS5PR 05-12 15:56 → M PCU 05-15 15:18
PROVIDERS: ADMIT Internal Medicine; ATTEND Internal Medicine
PROC: 0SRR0JZ Replacement of Right Hip Joint, Femoral Surface with Synthetic Substitute, Open Approach (ICD-10-PCS; principal; 2023-05-13 09:15)
DX: S72.141A Displaced intertrochanteric fracture of right femur, initial encounter for closed fracture (principal); G93.41 Metabolic encephalopathy; J98.11 Atelectasis; M06.9 Rheumatoid arthritis, unspecified; E11.22 Type 2 diabetes mellitus with diabetic chronic kidney disease; F03.90 Unspecified dementia, unspecified severity, without behavioral disturbance, psychotic disturbance, mood disturbance, and anxiety; I12.9 Hypertensive chronic kidney disease with stage 1 through stage 4 chronic kidney disease, or unspecified chronic kidney disease; N18.30 Chronic kidney disease, stage 3 unspecified; K21.9 Gastro-esophageal reflux disease without esophagitis; I25.10 Atherosclerotic heart disease of native coronary artery without angina pectoris; G20.A1 Parkinson's disease without dyskinesia, without mention of fluctuations; G47.33 Obstructive sleep apnea (adult) (pediatric); E87.5 Hyperkalemia; Z79.899 Other long term (current) drug therapy; Z79.82 Long term (current) use of aspirin; Z88.8 Allergy status to other drugs, medicaments and biological substances; Z87.891 Personal history of nicotine dependence; W18.30XA Fall on same level, unspecified, initial encounter; Y92.009 Unspecified place in unspecified non-institutional (private) residence as the place of occurrence of the external cause; E11.40 Type 2 diabetes mellitus with diabetic neuropathy, unspecified

== ENCOUNTER 2023-05-16 14:22 | Inpatient (IN) | payer MEDICARE ==
[~2023-05-16] VITALS: Ht 175.3 cm; Wt 92.1 kg
[~2023-05-16 14:22] MED LIST: ACET650T61 PO; AMLO1TAB25 PO; ASPI-1 PO; ATOR40TA75 PO; BACL10TA2 PO; CALC500T68 PO; CARB25TA9 PO; D32000CA PO; ISOS20TA53 PO; MAGN400C2 PO; METO50TA7 PO; POTA99CA2 PO; PREG50CA3 PO; TRAZ-257 PO
[2023-05-16] MEDS ORDERED: ONDANSETRON 4MG TAB PO PRN (16:00)
[2023-05-16] MEDS ORDERED: BISACODYL 10MG SUPP PR PRN (18:15)
[2023-05-16] MEDS ORDERED: HOME MED LIST COMPLETE! XX ONE (18:45)
[2023-05-16 18:49] VITALS: BP 136/75; TEMP 98.1; O2SAT 96
[2023-05-16] MEDS: IPRATROPIUM 0.5MG/ALBUTEROL 2.5MG INH SOL UD 3ML (DUONEB) NEB SCH (19:21)
[2023-05-16] MEDS: METOPROLOL TART 50 MG TAB PO SCH (20:54)
[2023-05-16] MEDS: DICLOFENAC EPOLAMINE 1.3% PATCH TOP SCH (20:55)
[2023-05-16] MEDS: ACETAMINOPHEN TAB 650MG DOSE (2X325MG) PO SCH (20:55)
[2023-05-16] MEDS: SINEMET 25-100 MG TAB PO SCH (20:55)
[2023-05-16] MEDS: HEPARIN SOD (PORCINE) 5000UNITS/ML 1ML VIAL/SYRINGE SC SCH (21:01)
[2023-05-17] MEDS: IPRATROPIUM 0.5MG/ALBUTEROL 2.5MG INH SOL UD 3ML (DUONEB) NEB SCH ×5 (00:41→19:20)
[2023-05-17 06:00] VITALS: BP 154/60; TEMP 97.3; O2SAT 96
[2023-05-17] MEDS: HEPARIN SOD (PORCINE) 5000UNITS/ML 1ML VIAL/SYRINGE SC SCH ×3 (06:01→21:15)
[2023-05-17 06:32] LABS: HEMATOCRIT 35.1 % (42.0-52.0); HEMOGLOBIN 11.3 g/dl (13.5-17.5); MEAN CORPUSCULAR HEMOGLOBIN 28.6 pg (27.0-33.0); MEAN CORPUSCULAR HGB CONC 32.2 g/dl (32.0-36.5); MEAN CORPUSCULAR VOLUME 88.9 fl (80.0-96.0); PLATELET COUNT, AUTOMATED 304 10^3/uL (150-450); RED BLOOD COUNT 3.95 10^6/uL (4.30-6.10); WHITE BLOOD COUNT 12.7 10^3/uL (4.0-10.0)
[2023-05-17 07:04] LABS: CREATININE FOR GFR 1.41 MG/DL (0.70-1.30); GLOMERULAR FILTRATION RATE 51.2 (>35); POTASSIUM SERUM 4.4 MMOL/L (3.5-5.1)
[2023-05-17] MEDS: SINEMET 25-100 MG TAB PO SCH ×2 (09:12→20:21)
[2023-05-17] MEDS: METOPROLOL TART 50 MG TAB PO SCH ×2 (09:14→20:22)
[2023-05-17] MEDS: ACETAMINOPHEN TAB 650MG DOSE (2X325MG) PO SCH ×3 (09:19→20:22)
[2023-05-17] MEDS: MIRALAX *UNIT DOSE* 17GM PACKET PO SCH (09:20)
[2023-05-17] MEDS: DICLOFENAC EPOLAMINE 1.3% PATCH TOP SCH ×2 (09:20→20:25)
[2023-05-17] MEDS: ATORVASTATIN 20 MG TAB PO SCH (09:20)
[2023-05-17 14:00] VITALS: BP 140/60; TEMP 97.7; O2SAT 97
[2023-05-17] MEDS: ISOSORBIDE MONONITRATE 10MG TABLET PO SCH (16:19)
[2023-05-17] MEDS: ASPIRIN 325 MG TAB PO SCH (16:19)
[2023-05-17 20:00] VITALS: BP_SYST 145; BP_SYST 160; BP_DIAS 78; BP_DIAS 82; TEMP 98.3; TEMP 98.8; O2SAT 90; O2SAT 95
[2023-05-17] MEDS ORDERED: ISOSORBIDE MON. (IMDUR) 30MG XR TAB PO SCH (21:00)
[2023-05-17] MEDS ORDERED: traZODone 50 MG TAB PO SCH (21:00)
[2023-05-17] MEDS ORDERED: PREGABALIN 25 MG CAP (LYRICA) PO SCH (21:00)
[2023-05-18] MEDS: IPRATROPIUM 0.5MG/ALBUTEROL 2.5MG INH SOL UD 3ML (DUONEB) NEB SCH ×4 (00:33→19:13)
[2023-05-18] MEDS: HEPARIN SOD (PORCINE) 5000UNITS/ML 1ML VIAL/SYRINGE SC SCH ×3 (05:26→20:08)
[2023-05-18 06:00] VITALS: BP 158/80; TEMP 97.4; O2SAT 98
[2023-05-18] MEDS: ISOSORBIDE MONONITRATE 10MG TABLET PO SCH ×2 (06:18→16:04)
[2023-05-18] MEDS: ATORVASTATIN 20 MG TAB PO SCH (08:11)
[2023-05-18] MEDS: SINEMET 25-100 MG TAB PO SCH ×2 (08:11→20:07)
[2023-05-18] MEDS: ASPIRIN 325 MG TAB PO SCH (08:11)
[2023-05-18] MEDS: DICLOFENAC EPOLAMINE 1.3% PATCH TOP SCH ×2 (08:12→20:08)
[2023-05-18] MEDS: METOPROLOL TART 50 MG TAB PO SCH ×2 (08:12→20:07)
[2023-05-18] MEDS: MIRALAX *UNIT DOSE* 17GM PACKET PO SCH (08:12)
[2023-05-18] MEDS: ACETAMINOPHEN TAB 650MG DOSE (2X325MG) PO SCH ×3 (08:12→20:07)
[2023-05-18] MEDS ORDERED: TAMSULOSIN 0.4 MG CAP PO SCH (09:00)
[2023-05-18] MEDS: traMADol 50 MG TAB PO PRN (11:23)
[2023-05-18 14:00] VITALS: BP 137/78; TEMP 97.3; O2SAT 98
[2023-05-18 20:00] VITALS: BP 147/71; TEMP 97.3; O2SAT 95
[2023-05-18] MEDS: PREGABALIN 50 MG CAP (LYRICA) PO SCH (20:07)
[2023-05-18] MEDS: traZODone 50 MG TAB PO SCH (20:07)
[2023-05-19] MEDS: IPRATROPIUM 0.5MG/ALBUTEROL 2.5MG INH SOL UD 3ML (DUONEB) NEB SCH ×4 (02:00→21:14)
[2023-05-19] MEDS: HEPARIN SOD (PORCINE) 5000UNITS/ML 1ML VIAL/SYRINGE SC SCH ×3 (05:43→21:22)
[2023-05-19 06:00] VITALS: BP 140/70; TEMP 97.3; O2SAT 93
[2023-05-19] MEDS: ISOSORBIDE MONONITRATE 10MG TABLET PO SCH ×2 (06:30→16:34)
[2023-05-19 06:51] LABS: HEMATOCRIT 34.7 % (42.0-52.0); HEMOGLOBIN 11.3 g/dl (13.5-17.5); MEAN CORPUSCULAR HEMOGLOBIN 28.9 pg (27.0-33.0); MEAN CORPUSCULAR HGB CONC 32.6 g/dl (32.0-36.5); MEAN CORPUSCULAR VOLUME 88.7 fl (80.0-96.0); PLATELET COUNT, AUTOMATED 394 10^3/uL (150-450); RED BLOOD COUNT 3.91 10^6/uL (4.30-6.10); WHITE BLOOD COUNT 10.5 10^3/uL (4.0-10.0)
[2023-05-19 07:21] LABS: ALBUMIN 2.4 G/DL (3.2-5.2); BILIRUBIN,TOTAL 0.5 MG/DL (0.3-1.2); CALCIUM LEVEL 8.3 MG/DL (8.3-10.6); CREATININE FOR GFR 1.37 MG/DL (0.70-1.30); POTASSIUM SERUM 4.5 MMOL/L (3.5-5.1); TOTAL PROTEIN 5.6 G/DL (5.7-8.2)
[2023-05-19] MEDS: DICLOFENAC EPOLAMINE 1.3% PATCH TOP SCH ×2 (07:56→20:23)
[2023-05-19] MEDS: ACETAMINOPHEN TAB 650MG DOSE (2X325MG) PO SCH ×3 (07:57→20:22)
[2023-05-19] MEDS: ATORVASTATIN 20 MG TAB PO SCH (07:57)
[2023-05-19] MEDS: SINEMET 25-100 MG TAB PO SCH ×2 (07:57→20:23)
[2023-05-19] MEDS: METOPROLOL TART 50 MG TAB PO SCH ×2 (07:58→20:23)
[2023-05-19] MEDS: ASPIRIN 325 MG TAB PO SCH (07:59)
[2023-05-19] MEDS: MIRALAX *UNIT DOSE* 17GM PACKET PO SCH (08:03)
[2023-05-19] MEDS: traMADol 50 MG TAB PO PRN ×2 (11:48→22:03)
[2023-05-19 14:00] VITALS: BP 138/64; TEMP 97.6; O2SAT 95
[2023-05-19] MEDS: BACLOFEN 5MG PER 1/2 TABLET PO SCH (14:23)
[2023-05-19 20:00] VITALS: BP 139/65; TEMP 97.5; O2SAT 95
[2023-05-19] MEDS: PREGABALIN 50 MG CAP (LYRICA) PO SCH (20:23)
[2023-05-19] MEDS: traZODone 50 MG TAB PO SCH (20:23)
[2023-05-20] MEDS: IPRATROPIUM 0.5MG/ALBUTEROL 2.5MG INH SOL UD 3ML (DUONEB) NEB SCH ×4 (02:00→19:35)
[2023-05-20] MEDS: HEPARIN SOD (PORCINE) 5000UNITS/ML 1ML VIAL/SYRINGE SC SCH ×3 (05:49→20:39)
[2023-05-20 06:00] VITALS: BP 149/68; TEMP 97.1; O2SAT 95
[2023-05-20] MEDS: BACLOFEN 5MG PER 1/2 TABLET PO SCH ×2 (06:37→14:19)
[2023-05-20] MEDS: ISOSORBIDE MONONITRATE 10MG TABLET PO SCH ×2 (06:38→16:09)
[2023-05-20] MEDS: METOPROLOL TART 50 MG TAB PO SCH ×2 (08:11→20:32)
[2023-05-20] MEDS: MIRALAX *UNIT DOSE* 17GM PACKET PO SCH (08:11)
[2023-05-20] MEDS: traMADol 50 MG TAB PO PRN ×2 (08:11→20:32)
[2023-05-20] MEDS: ASPIRIN 325 MG TAB PO SCH (08:11)
[2023-05-20] MEDS: ACETAMINOPHEN TAB 650MG DOSE (2X325MG) PO SCH ×3 (08:11→20:30)
[2023-05-20] MEDS: DICLOFENAC EPOLAMINE 1.3% PATCH TOP SCH ×2 (08:12→20:27)
[2023-05-20] MEDS: ATORVASTATIN 20 MG TAB PO SCH (08:12)
[2023-05-20] MEDS: SINEMET 25-100 MG TAB PO SCH ×2 (08:12→20:31)
[2023-05-20 14:00] VITALS: BP 147/67; TEMP 96.6; O2SAT 95
[2023-05-20 20:00] VITALS: BP 155/67; TEMP 96.4; O2SAT 95
[2023-05-20] MEDS: traZODone 50 MG TAB PO SCH (20:31)
[2023-05-20] MEDS: PREGABALIN 50 MG CAP (LYRICA) PO SCH (20:31)
[2023-05-21] MEDS: IPRATROPIUM 0.5MG/ALBUTEROL 2.5MG INH SOL UD 3ML (DUONEB) NEB SCH ×4 (01:28→20:34)
[2023-05-21 06:00] VITALS: BP 139/63; TEMP 97.2; O2SAT 92
[2023-05-21] MEDS: BACLOFEN 5MG PER 1/2 TABLET PO SCH ×2 (06:06→13:43)
[2023-05-21] MEDS: HEPARIN SOD (PORCINE) 5000UNITS/ML 1ML VIAL/SYRINGE SC SCH ×3 (06:06→21:05)
[2023-05-21] MEDS: ISOSORBIDE MONONITRATE 10MG TABLET PO SCH ×2 (06:07→17:03)
[2023-05-21] MEDS: SINEMET 25-100 MG TAB PO SCH ×2 (08:12→21:05)
[2023-05-21] MEDS: ASPIRIN 325 MG TAB PO SCH (08:12)
[2023-05-21] MEDS: MIRALAX *UNIT DOSE* 17GM PACKET PO SCH (08:12)
[2023-05-21] MEDS: ACETAMINOPHEN TAB 650MG DOSE (2X325MG) PO SCH ×3 (08:13→21:05)
[2023-05-21] MEDS: traMADol 50 MG TAB PO PRN (08:13)
[2023-05-21] MEDS: DICLOFENAC EPOLAMINE 1.3% PATCH TOP SCH ×2 (08:14→21:05)
[2023-05-21] MEDS: ATORVASTATIN 20 MG TAB PO SCH (08:14)
[2023-05-21] MEDS: METOPROLOL TART 50 MG TAB PO SCH ×2 (08:14→21:00)
[2023-05-21 14:00] VITALS: BP 133/69; TEMP 97.1; O2SAT 94
[2023-05-21 19:41] VITALS: BP 138/65; TEMP 97.9; O2SAT 94
[2023-05-21] MEDS: traZODone 50 MG TAB PO SCH (21:06)
[2023-05-21] MEDS: PREGABALIN 50 MG CAP (LYRICA) PO SCH (21:06)
[2023-05-22] MEDS: IPRATROPIUM 0.5MG/ALBUTEROL 2.5MG INH SOL UD 3ML (DUONEB) NEB SCH ×4 (00:10→20:41)
[2023-05-22] MEDS: HEPARIN SOD (PORCINE) 5000UNITS/ML 1ML VIAL/SYRINGE SC SCH ×3 (05:55→20:34)
[2023-05-22 05:56] VITALS: BP 145/70; TEMP 97.1; O2SAT 93
[2023-05-22] MEDS: METOPROLOL TART 50 MG TAB PO SCH ×2 (07:04→20:33)
[2023-05-22] MEDS: MIRALAX *UNIT DOSE* 17GM PACKET PO SCH (07:09)
[2023-05-22] MEDS: DICLOFENAC EPOLAMINE 1.3% PATCH TOP SCH ×2 (07:09→20:34)
[2023-05-22] MEDS: SINEMET 25-100 MG TAB PO SCH ×2 (07:10→20:33)
[2023-05-22] MEDS: ASPIRIN 325 MG TAB PO SCH (07:10)
[2023-05-22] MEDS: ATORVASTATIN 20 MG TAB PO SCH (07:10)
[2023-05-22] MEDS: ACETAMINOPHEN TAB 650MG DOSE (2X325MG) PO SCH ×3 (07:10→20:34)
[2023-05-22] MEDS: BACLOFEN 5MG PER 1/2 TABLET PO SCH (07:11)
[2023-05-22] MEDS: ISOSORBIDE MONONITRATE 10MG TABLET PO SCH ×2 (07:11→16:06)
[2023-05-22] MEDS: traMADol 50 MG TAB PO PRN (10:31)
[2023-05-22] MEDS: BACLOFEN 10 MG TAB PO SCH (13:05)
[2023-05-22 14:00] VITALS: BP 149/67; TEMP 97.5; O2SAT 97
[2023-05-22 20:00] VITALS: BP 152/70; TEMP 97.5; O2SAT 92
[2023-05-22] MEDS: PREGABALIN 50 MG CAP (LYRICA) PO SCH (20:33)
[2023-05-22] MEDS: traZODone 50 MG TAB PO SCH (20:33)
[2023-05-23] MEDS: IPRATROPIUM 0.5MG/ALBUTEROL 2.5MG INH SOL UD 3ML (DUONEB) NEB SCH ×4 (01:48→13:17)
[2023-05-23 06:00] VITALS: BP 130/68; TEMP 98.5; O2SAT 92
[2023-05-23] MEDS: ISOSORBIDE MONONITRATE 10MG TABLET PO SCH ×2 (06:16→16:12)
[2023-05-23] MEDS: BACLOFEN 10 MG TAB PO SCH ×2 (06:16→12:08)
[2023-05-23] MEDS: HEPARIN SOD (PORCINE) 5000UNITS/ML 1ML VIAL/SYRINGE SC SCH ×3 (06:16→20:39)
[2023-05-23 06:19] LABS: HEMATOCRIT 31.8 % (42.0-52.0); HEMOGLOBIN 10.3 g/dl (13.5-17.5); MEAN CORPUSCULAR HEMOGLOBIN 29.1 pg (27.0-33.0); MEAN CORPUSCULAR HGB CONC 32.4 g/dl (32.0-36.5); MEAN CORPUSCULAR VOLUME 89.8 fl (80.0-96.0); PLATELET COUNT, AUTOMATED 455 10^3/uL (150-450); RED BLOOD COUNT 3.54 10^6/uL (4.30-6.10); WHITE BLOOD COUNT 9.8 10^3/uL (4.0-10.0)
[2023-05-23 06:40] LABS: ALBUMIN 2.4 G/DL (3.2-5.2); BILIRUBIN,TOTAL 0.3 MG/DL (0.3-1.2); CALCIUM LEVEL 8.8 MG/DL (8.3-10.6); CREATININE FOR GFR 1.23 MG/DL (0.70-1.30); MAGNESIUM LEVEL 1.7 MG/DL (1.8-2.4); TOTAL PROTEIN 5.4 G/DL (5.7-8.2)
[2023-05-23] MEDS: MIRALAX *UNIT DOSE* 17GM PACKET PO SCH (07:11)
[2023-05-23] MEDS: DICLOFENAC EPOLAMINE 1.3% PATCH TOP SCH ×2 (07:11→20:37)
[2023-05-23] MEDS: SINEMET 25-100 MG TAB PO SCH ×2 (07:12→20:38)
[2023-05-23] MEDS: METOPROLOL TART 50 MG TAB PO SCH ×2 (07:12→20:38)
[2023-05-23] MEDS: ASPIRIN 325 MG TAB PO SCH (07:12)
[2023-05-23] MEDS: ATORVASTATIN 20 MG TAB PO SCH (07:12)
[2023-05-23] MEDS: ACETAMINOPHEN TAB 650MG DOSE (2X325MG) PO SCH ×3 (07:13→20:38)
[2023-05-23] MEDS: traMADol 50 MG TAB PO PRN ×2 (08:51→19:11)
[2023-05-23 14:00] VITALS: BP 121/60; TEMP 97; O2SAT 93
[2023-05-23 20:00] VITALS: BP 133/60; TEMP 98; O2SAT 96
[2023-05-23] MEDS: PREGABALIN 50 MG CAP (LYRICA) PO SCH (20:38)
[2023-05-23] MEDS: traZODone 50 MG TAB PO SCH (20:38)
[2023-05-24] MEDS: IPRATROPIUM 0.5MG/ALBUTEROL 2.5MG INH SOL UD 3ML (DUONEB) NEB SCH ×4 (02:01→20:06)
[2023-05-24] MEDS: traMADol 50 MG TAB PO PRN ×2 (03:14→10:05)
[2023-05-24 06:00] VITALS: BP 132/60; TEMP 98.5; O2SAT 94
[2023-05-24] MEDS: HEPARIN SOD (PORCINE) 5000UNITS/ML 1ML VIAL/SYRINGE SC SCH ×3 (06:33→20:19)
[2023-05-24] MEDS: BACLOFEN 10 MG TAB PO SCH ×2 (06:33→14:35)
[2023-05-24] MEDS: ISOSORBIDE MONONITRATE 10MG TABLET PO SCH ×2 (06:34→17:03)
[2023-05-24] MEDS: ACETAMINOPHEN TAB 650MG DOSE (2X325MG) PO SCH ×3 (08:34→20:18)
[2023-05-24] MEDS: ATORVASTATIN 20 MG TAB PO SCH (08:34)
[2023-05-24] MEDS: METOPROLOL TART 50 MG TAB PO SCH ×2 (08:34→20:18)
[2023-05-24] MEDS: ASPIRIN 325 MG TAB PO SCH (08:35)
[2023-05-24] MEDS: MIRALAX *UNIT DOSE* 17GM PACKET PO SCH (08:35)
[2023-05-24] MEDS: DICLOFENAC EPOLAMINE 1.3% PATCH TOP SCH ×2 (08:35→20:18)
[2023-05-24] MEDS: SINEMET 25-100 MG TAB PO SCH ×2 (08:35→20:18)
[2023-05-24 14:00] VITALS: BP 132/61; TEMP 97.4; O2SAT 97
[2023-05-24 20:00] VITALS: BP 140/65; TEMP 97.6; O2SAT 94
[2023-05-24] MEDS: PREGABALIN 50 MG CAP (LYRICA) PO SCH (20:18)
[2023-05-24] MEDS: traZODone 50 MG TAB PO SCH (20:18)
[2023-05-25] MEDS: IPRATROPIUM 0.5MG/ALBUTEROL 2.5MG INH SOL UD 3ML (DUONEB) NEB SCH ×2 (02:00→07:28)
[2023-05-25 06:00] VITALS: BP 159/60; TEMP 97; O2SAT 94
[2023-05-25] MEDS: BACLOFEN 10 MG TAB PO SCH ×2 (06:34→13:54)
[2023-05-25] MEDS: ISOSORBIDE MONONITRATE 10MG TABLET PO SCH ×2 (06:44→16:55)
[2023-05-25] MEDS: HEPARIN SOD (PORCINE) 5000UNITS/ML 1ML VIAL/SYRINGE SC SCH ×3 (06:44→21:23)
[2023-05-25] MEDS: ACETAMINOPHEN TAB 650MG DOSE (2X325MG) PO SCH ×3 (08:54→20:08)
[2023-05-25] MEDS: ASPIRIN 325 MG TAB PO SCH (08:54)
[2023-05-25] MEDS: SINEMET 25-100 MG TAB PO SCH ×2 (08:54→20:08)
[2023-05-25] MEDS: MIRALAX *UNIT DOSE* 17GM PACKET PO SCH (08:55)
[2023-05-25] MEDS: METOPROLOL TART 50 MG TAB PO SCH ×2 (08:55→20:07)
[2023-05-25] MEDS: DICLOFENAC EPOLAMINE 1.3% PATCH TOP SCH ×2 (08:55→20:06)
[2023-05-25] MEDS: ATORVASTATIN 20 MG TAB PO SCH (08:55)
[2023-05-25] MEDS ORDERED: IPRATROPIUM 0.5MG/ALBUTEROL 2.5MG INH SOL UD 3ML (DUONEB) NEB PRN (11:50)
[2023-05-25] MEDS: traMADol 50 MG TAB PO PRN ×2 (12:38→20:07)
[2023-05-25 14:00] VITALS: BP 132/60; TEMP 97.6; O2SAT 95
[2023-05-25 20:00] VITALS: BP 125/62; TEMP 98.2; O2SAT 94
[2023-05-25] MEDS: PREGABALIN 50 MG CAP (LYRICA) PO SCH (20:08)
[2023-05-25] MEDS: traZODone 50 MG TAB PO SCH (20:08)
[2023-05-26 06:00] VITALS: BP 136/64; TEMP 96.9; O2SAT 95
[2023-05-26] MEDS: HEPARIN SOD (PORCINE) 5000UNITS/ML 1ML VIAL/SYRINGE SC SCH ×3 (06:00→20:35)
[2023-05-26] MEDS: ISOSORBIDE MONONITRATE 10MG TABLET PO SCH ×2 (06:01→16:35)
[2023-05-26] MEDS: BACLOFEN 10 MG TAB PO SCH ×2 (06:01→14:58)
[2023-05-26] MEDS: DICLOFENAC EPOLAMINE 1.3% PATCH TOP SCH ×2 (09:00→20:35)
[2023-05-26] MEDS: ATORVASTATIN 20 MG TAB PO SCH (10:00)
[2023-05-26] MEDS: ASPIRIN 325 MG TAB PO SCH (10:01)
[2023-05-26] MEDS: traMADol 50 MG TAB PO PRN ×2 (10:01→16:37)
[2023-05-26] MEDS: SINEMET 25-100 MG TAB PO SCH ×2 (10:01→20:34)
[2023-05-26] MEDS: MIRALAX *UNIT DOSE* 17GM PACKET PO SCH (10:02)
[2023-05-26] MEDS: METOPROLOL TART 50 MG TAB PO SCH ×2 (10:02→19:27)
[2023-05-26] MEDS: ACETAMINOPHEN TAB 650MG DOSE (2X325MG) PO SCH ×3 (10:07→20:35)
[2023-05-26] MEDS ORDERED: PILL CUTTER 1 EACH XX PRN (13:05)
[2023-05-26 14:00] VITALS: BP 143/66; TEMP 97.8; O2SAT 94
[2023-05-26 20:00] VITALS: BP 122/57; TEMP 97; O2SAT 95
[2023-05-26] MEDS: traZODone 50 MG TAB PO SCH (20:34)
[2023-05-26] MEDS: PREGABALIN 50 MG CAP (LYRICA) PO SCH (20:34)
[2023-05-27 05:02] VITALS: BP 133/72; TEMP 97.5; O2SAT 93
[2023-05-27] MEDS: ISOSORBIDE MONONITRATE 10MG TABLET PO SCH ×3 (06:01→16:18)
[2023-05-27] MEDS: HEPARIN SOD (PORCINE) 5000UNITS/ML 1ML VIAL/SYRINGE SC SCH ×3 (06:01→20:17)
[2023-05-27] MEDS: BACLOFEN 10 MG TAB PO SCH ×2 (06:48→12:37)
[2023-05-27] MEDS: DICLOFENAC EPOLAMINE 1.3% PATCH TOP SCH ×2 (08:12→20:17)
[2023-05-27] MEDS: MIRALAX *UNIT DOSE* 17GM PACKET PO SCH (08:12)
[2023-05-27] MEDS: ATORVASTATIN 20 MG TAB PO SCH (08:13)
[2023-05-27] MEDS: ASPIRIN 325 MG TAB PO SCH (08:13)
[2023-05-27] MEDS: METOPROLOL TART 50 MG TAB PO SCH ×2 (08:13→20:16)
[2023-05-27] MEDS: ACETAMINOPHEN TAB 650MG DOSE (2X325MG) PO SCH ×3 (08:13→20:17)
[2023-05-27] MEDS: SINEMET 25-100 MG TAB PO SCH ×2 (08:14→20:16)
[2023-05-27] MEDS: traMADol 50 MG TAB PO PRN (13:11)
[2023-05-27 14:00] VITALS: BP 112/60; TEMP 97.6; O2SAT 96
[2023-05-27 20:00] VITALS: BP 131/81; TEMP 97.6; O2SAT 96
[2023-05-27] MEDS: PREGABALIN 50 MG CAP (LYRICA) PO SCH (20:13)
[2023-05-27] MEDS: traZODone 50 MG TAB PO SCH (20:16)
[2023-05-28] MEDS: HEPARIN SOD (PORCINE) 5000UNITS/ML 1ML VIAL/SYRINGE SC SCH ×3 (05:17→20:22)
[2023-05-28 05:27] VITALS: BP 136/62; TEMP 97; O2SAT 95
[2023-05-28] MEDS: BACLOFEN 10 MG TAB PO SCH ×2 (06:53→12:03)
[2023-05-28] MEDS: ISOSORBIDE MONONITRATE 10MG TABLET PO SCH ×2 (06:53→16:54)
[2023-05-28] MEDS: METOPROLOL TART 50 MG TAB PO SCH ×2 (07:02→21:00)
[2023-05-28] MEDS: DICLOFENAC EPOLAMINE 1.3% PATCH TOP SCH ×2 (07:21→20:21)
[2023-05-28] MEDS: ASPIRIN 325 MG TAB PO SCH (07:22)
[2023-05-28] MEDS: MIRALAX *UNIT DOSE* 17GM PACKET PO SCH (07:22)
[2023-05-28] MEDS: ACETAMINOPHEN TAB 650MG DOSE (2X325MG) PO SCH ×3 (07:22→20:21)
[2023-05-28] MEDS: ATORVASTATIN 20 MG TAB PO SCH (07:22)
[2023-05-28] MEDS: SINEMET 25-100 MG TAB PO SCH ×2 (07:22→20:21)
[2023-05-28 14:00] VITALS: BP 140/64; TEMP 97.2; O2SAT 95
[2023-05-28] MEDS: traMADol 50 MG TAB PO PRN (19:40)
[2023-05-28 20:00] VITALS: BP 127/59; TEMP 97.4; O2SAT 95
[2023-05-28] MEDS: traZODone 50 MG TAB PO SCH (20:21)
[2023-05-28] MEDS: PREGABALIN 50 MG CAP (LYRICA) PO SCH (20:21)
[2023-05-29] MEDS: HEPARIN SOD (PORCINE) 5000UNITS/ML 1ML VIAL/SYRINGE SC SCH ×3 (05:06→20:38)
[2023-05-29] MEDS: traMADol 50 MG TAB PO PRN ×2 (05:06→20:38)
[2023-05-29 06:00] VITALS: BP 143/67; TEMP 97.2; O2SAT 94
[2023-05-29] MEDS: BACLOFEN 10 MG TAB PO SCH ×2 (06:39→13:06)
[2023-05-29] MEDS: ISOSORBIDE MONONITRATE 10MG TABLET PO SCH ×2 (06:40→16:36)
[2023-05-29 07:34] LABS: HEMOGLOBIN 11.9 g/dl (13.5-17.5); MEAN CORPUSCULAR HEMOGLOBIN 28.2 pg (27.0-33.0); MEAN CORPUSCULAR HGB CONC 31.3 g/dl (32.0-36.5); PLATELET COUNT, AUTOMATED 462 10^3/uL (150-450); RED BLOOD COUNT 4.22 10^6/uL (4.30-6.10); WHITE BLOOD COUNT 9.4 10^3/uL (4.0-10.0)
[2023-05-29] MEDS: ACETAMINOPHEN TAB 650MG DOSE (2X325MG) PO SCH ×3 (08:09→20:37)
[2023-05-29] MEDS: DICLOFENAC EPOLAMINE 1.3% PATCH TOP SCH ×2 (08:09→20:37)
[2023-05-29] MEDS: SINEMET 25-100 MG TAB PO SCH ×2 (08:10→20:38)
[2023-05-29] MEDS: ASPIRIN 325 MG TAB PO SCH (08:10)
[2023-05-29] MEDS: METOPROLOL TART 50 MG TAB PO SCH ×2 (08:10→20:39)
[2023-05-29] MEDS: ATORVASTATIN 20 MG TAB PO SCH (08:10)
[2023-05-29] MEDS: MIRALAX *UNIT DOSE* 17GM PACKET PO SCH (08:11)
[2023-05-29 08:24] LABS: ALBUMIN 2.9 G/DL (3.2-5.2); ALKALINE PHOSPHATASE 65 U/L (46-116); ALT/SGPT 18 U/L (7.0-40); AST/SGOT 16 U/L (<34); BILIRUBIN,TOTAL 0.3 MG/DL (0.3-1.2); BLOOD UREA NITROGEN 15 MG/DL (9-23); CALCIUM LEVEL 9.4 MG/DL (8.3-10.6); CARBON DIOXIDE LEVEL 24 MMOL/L (20-31); CHLORIDE LEVEL 109 MMOL/L (98-107); CREATININE FOR GFR 1.11 MG/DL (0.70-1.30); GLOMERULAR FILTRATION RATE > 60.0 (>35); GLUCOSE, FASTING 94 MG/DL (74-106); MAGNESIUM LEVEL 1.6 MG/DL (1.8-2.4); POTASSIUM SERUM 4.5 MMOL/L (3.5-5.1); SODIUM LEVEL 143 MMOL/L (136-145)
[2023-05-29 14:00] VITALS: BP 109/51; TEMP 97.6; O2SAT 96
[2023-05-29 20:00] VITALS: BP 142/70; TEMP 97.4; O2SAT 95
[2023-05-29] MEDS: PREGABALIN 50 MG CAP (LYRICA) PO SCH (20:38)
[2023-05-29] MEDS: traZODone 50 MG TAB PO SCH (20:38)
[2023-05-30] MEDS: HEPARIN SOD (PORCINE) 5000UNITS/ML 1ML VIAL/SYRINGE SC SCH ×3 (05:48→20:38)
[2023-05-30 06:00] VITALS: BP 108/81; TEMP 97; O2SAT 95
[2023-05-30] MEDS: BACLOFEN 10 MG TAB PO SCH ×2 (06:24→13:37)
[2023-05-30] MEDS: traMADol 50 MG TAB PO PRN ×2 (06:25→20:37)
[2023-05-30] MEDS: ISOSORBIDE MONONITRATE 10MG TABLET PO SCH ×2 (06:56→17:15)
[2023-05-30] MEDS: ATORVASTATIN 20 MG TAB PO SCH (09:25)
[2023-05-30] MEDS: MIRALAX *UNIT DOSE* 17GM PACKET PO SCH (09:25)
[2023-05-30] MEDS: ASPIRIN 325 MG TAB PO SCH (09:25)
[2023-05-30] MEDS: METOPROLOL TART 50 MG TAB PO SCH ×2 (09:26→20:38)
[2023-05-30] MEDS: ACETAMINOPHEN TAB 650MG DOSE (2X325MG) PO SCH ×3 (09:26→20:37)
[2023-05-30] MEDS: SINEMET 25-100 MG TAB PO SCH ×2 (09:26→20:37)
[2023-05-30] MEDS: DICLOFENAC EPOLAMINE 1.3% PATCH TOP SCH ×2 (09:26→20:38)
[2023-05-30 14:00] VITALS: BP 141/63; TEMP 97.3; O2SAT 94
[2023-05-30 20:00] VITALS: BP 134/60; TEMP 96.7; O2SAT 95
[2023-05-30] MEDS: PREGABALIN 50 MG CAP (LYRICA) PO SCH (20:37)
[2023-05-30] MEDS: traZODone 50 MG TAB PO SCH (20:38)
[2023-05-31] MEDS: HEPARIN SOD (PORCINE) 5000UNITS/ML 1ML VIAL/SYRINGE SC SCH ×3 (05:48→21:19)
[2023-05-31 06:00] VITALS: BP 153/74; TEMP 96.6; O2SAT 95
[2023-05-31] MEDS: BACLOFEN 10 MG TAB PO SCH ×2 (06:42→12:58)
[2023-05-31] MEDS: ISOSORBIDE MONONITRATE 10MG TABLET PO SCH ×2 (06:42→16:34)
[2023-05-31] MEDS: SINEMET 25-100 MG TAB PO SCH ×2 (07:32→20:05)
[2023-05-31] MEDS: ACETAMINOPHEN TAB 650MG DOSE (2X325MG) PO SCH ×3 (07:32→20:05)
[2023-05-31] MEDS: METOPROLOL TART 50 MG TAB PO SCH ×2 (07:32→20:06)
[2023-05-31] MEDS: ASPIRIN 325 MG TAB PO SCH (07:32)
[2023-05-31] MEDS: ATORVASTATIN 20 MG TAB PO SCH (07:33)
[2023-05-31] MEDS: MIRALAX *UNIT DOSE* 17GM PACKET PO SCH (07:33)
[2023-05-31] MEDS: DICLOFENAC EPOLAMINE 1.3% PATCH TOP SCH ×2 (09:31→20:07)
[2023-05-31 14:00] VITALS: BP 142/65; TEMP 97.6; O2SAT 97
[2023-05-31 20:00] VITALS: BP 118/58; TEMP 98; O2SAT 95
[2023-05-31] MEDS: traZODone 50 MG TAB PO SCH (20:05)
[2023-05-31] MEDS: PREGABALIN 50 MG CAP (LYRICA) PO SCH (20:05)
[2023-06-01] MEDS: HEPARIN SOD (PORCINE) 5000UNITS/ML 1ML VIAL/SYRINGE SC SCH (05:27)
[2023-06-01 06:00] VITALS: BP 140/63; TEMP 97.8; O2SAT 94
[2023-06-01] MEDS: BACLOFEN 10 MG TAB PO SCH (06:51)
[2023-06-01] MEDS: ISOSORBIDE MONONITRATE 10MG TABLET PO SCH (06:51)
[2023-06-01 08:30] VITALS: BP 140/63
[2023-06-01] MEDS: ATORVASTATIN 20 MG TAB PO SCH (08:30)
[2023-06-01] MEDS: MIRALAX *UNIT DOSE* 17GM PACKET PO SCH (08:30)
[2023-06-01] MEDS: DICLOFENAC EPOLAMINE 1.3% PATCH TOP SCH (08:30)
[2023-06-01] MEDS: ASPIRIN 325 MG TAB PO SCH (08:30)
[2023-06-01] MEDS: METOPROLOL TART 50 MG TAB PO SCH (08:30)
[2023-06-01] MEDS: SINEMET 25-100 MG TAB PO SCH (08:31)
[2023-06-01] MEDS: ACETAMINOPHEN TAB 650MG DOSE (2X325MG) PO SCH (08:31)
[2023-06-01] MEDS ORDERED: TRAZ-252 PO (08:38)
[2023-06-01] MEDS ORDERED: Pill Cutter XX (08:38)
[2023-06-01] MEDS ORDERED: PREG50CA PO (08:38)
== END 2023-06-01 12:10 | disposition home health service (06) | DRG 560 ==
LOC: M PM&R 18:35
PROVIDERS: ADMIT Student in an Organized Health Care Education/Training Program; ATTEND Physical Medicine & Rehabilitation
DX: S72.141D Displaced intertrochanteric fracture of right femur, subsequent encounter for closed fracture with routine healing (principal); J98.11 Atelectasis; G93.40 Encephalopathy, unspecified; N18.30 Chronic kidney disease, stage 3 unspecified; G20.A1 Parkinson's disease without dyskinesia, without mention of fluctuations; G47.33 Obstructive sleep apnea (adult) (pediatric); I12.9 Hypertensive chronic kidney disease with stage 1 through stage 4 chronic kidney disease, or unspecified chronic kidney disease; K21.9 Gastro-esophageal reflux disease without esophagitis; R13.12 Dysphagia, oropharyngeal phase; E11.22 Type 2 diabetes mellitus with diabetic chronic kidney disease; R33.9 Retention of urine, unspecified; I25.10 Atherosclerotic heart disease of native coronary artery without angina pectoris; F32.89 Other specified depressive episodes; E78.5 Hyperlipidemia, unspecified; G47.00 Insomnia, unspecified; F03.90 Unspecified dementia, unspecified severity, without behavioral disturbance, psychotic disturbance, mood disturbance, and anxiety; M06.9 Rheumatoid arthritis, unspecified; G50.0 Trigeminal neuralgia; G89.29 Other chronic pain; K59.00 Constipation, unspecified; L89.159 Pressure ulcer of sacral region, unspecified stage; L89.619 Pressure ulcer of right heel, unspecified stage; L89.622 Pressure ulcer of left heel, stage 2; E11.42 Type 2 diabetes mellitus with diabetic polyneuropathy; Z96.641 Presence of right artificial hip joint; Z95.5 Presence of coronary angioplasty implant and graft; Z90.49 Acquired absence of other specified parts of digestive tract; Z74.09 Other reduced mobility; Z74.1 Need for assistance with personal care; Z79.82 Long term (current) use of aspirin; Z79.899 Other long term (current) drug therapy; Z88.8 Allergy status to other drugs, medicaments and biological substances; Z91.018 Allergy to other foods

== ENCOUNTER → 2023-06-14 | Outpatient (CLI) | payer MEDICARE ==
[~2023-06-14] MED LIST changes: +PREG50CA PO; +Pill Cutter XX; +TRAZ-252 PO
== END ==
LOC: M SOG 07:55
PROVIDERS: ATTEND Physician Assistant
DX: Z96.641 Presence of right artificial hip joint (principal)

== ENCOUNTER → 2023-06-30 | Outpatient (REF) | payer MEDICARE ==
[2023-06-30 14:51] LABS: BASO # 0.1 10^3/uL (0.0-0.2); BASO % 0.9 % (0.0-1.0); EOS # 0.3 10^3/uL (0.0-0.5); EOS % 3.2 % (0.0-3.0); HEMATOCRIT 42.8 % (42.0-52.0); HEMOGLOBIN 13.8 g/dl (13.5-17.5); LYMPH # 1.8 10^3/uL (1.5-5.0); MEAN CORPUSCULAR HEMOGLOBIN 28.9 pg (27.0-33.0); MEAN CORPUSCULAR HGB CONC 32.2 g/dl (32.0-36.5); MEAN CORPUSCULAR VOLUME 89.5 fl (80.0-96.0); MONO # 0.6 10^3/uL (0.0-0.8); MONO % 6.7 % (2.0-8.0); NEUTROPHILS # 5.5 10^3/uL (1.5-8.5); PLATELET COUNT, AUTOMATED 339 10^3/uL (150-450); RED BLOOD COUNT 4.78 10^6/uL (4.30-6.10); WHITE BLOOD COUNT 8.2 10^3/uL (4.0-10.0)
[2023-06-30 15:16] LABS: ALBUMIN 3.5 G/DL (3.2-5.2); ALKALINE PHOSPHATASE 67 U/L (46-116); ALT/SGPT < 9 U/L (7.0-40); AST/SGOT 10 U/L (<34); BILIRUBIN,TOTAL 0.3 MG/DL (0.3-1.2); BLOOD UREA NITROGEN 30 MG/DL (9-23); CARBON DIOXIDE LEVEL 28 MMOL/L (20-31); CHLORIDE LEVEL 105 MMOL/L (98-107); CREATININE FOR GFR 1.34 MG/DL (0.70-1.30); GLOMERULAR FILTRATION RATE 54.3 (>35); GLUCOSE, FASTING 111 MG/DL (74-106); IRON (FE) 30 UG/DL (65-175); POTASSIUM SERUM 4.8 MMOL/L (3.5-5.1); SODIUM LEVEL 137 MMOL/L (136-145); TOTAL PROTEIN 6.6 G/DL (5.7-8.2)
[2023-06-30 15:18] LABS: FERRITIN 93.7 NG/ML (10.5-307.3)
== END ==
LOC: M SHH 14:22
PROVIDERS: ATTEND Physician Assistant Medical
DX: I10 Essential (primary) hypertension (principal); Z96.641 Presence of right artificial hip joint; D50.9 Iron deficiency anemia, unspecified

== ENCOUNTER → 2023-07-19 | Outpatient (REF) | payer MEDICARE | LOC: M SHH 15:51 | PROVIDERS: ATTEND Physician Assistant Medical | DX: E83.42 Hypomagnesemia (principal) ==

== ENCOUNTER → 2023-08-02 | Outpatient (CLI) | payer MEDICARE | LOC: M RAD 11:15 | PROVIDERS: ATTEND Surgery | DX: L89.613 Pressure ulcer of right heel, stage 3 (principal); R68.89 Other general symptoms and signs; I70.201 Unspecified atherosclerosis of native arteries of extremities, right leg ==

== ENCOUNTER → 2023-08-09 | Outpatient (REF) | payer MEDICARE ==
[2023-08-09 15:46] LABS: INR 1.02; PARTIAL THROMBOPLASTIN TIME 28.1 SECONDS (24.8-34.2); PROTHROMBIN TIME 13.1 SECONDS (12.5-14.5)
[2023-08-09 16:52] LABS: HEMOGLOBIN A1c 5.2 % (4.0-6.0)
[2023-08-09 17:10] LABS: ALBUMIN 3.1 G/DL (3.2-5.2); ALKALINE PHOSPHATASE 54 U/L (46-116); ALT/SGPT < 9 U/L (7.0-40); AST/SGOT 11 U/L (<34); BILIRUBIN,TOTAL 0.5 MG/DL (0.3-1.2); BLOOD UREA NITROGEN 32 MG/DL (9-23); CALCIUM LEVEL 8.9 MG/DL (8.3-10.6); CARBON DIOXIDE LEVEL 27 MMOL/L (20-31); CHLORIDE LEVEL 104 MMOL/L (98-107); CHOLESTEROL LEVEL 109 MG/DL (<200); CHOLESTEROL RISK RATIO 2.91 (<5); CREATININE FOR GFR 1.21 MG/DL (0.70-1.30); GLOMERULAR FILTRATION RATE > 60.0 (>35); GLUCOSE, FASTING 74 MG/DL (74-106); HDL CHOLESTEROL 37.4 MG/DL (>40); LDL CHOLESTEROL 57.2 MG/DL (<100); NON-HDL-C 71.6 MG/DL; POTASSIUM SERUM 4.7 MMOL/L (3.5-5.1); SODIUM LEVEL 139 MMOL/L (136-145); TOTAL PROTEIN 6.1 G/DL (5.7-8.2); TRIGLYCERIDES LEVEL 72 MG/DL (<150)
== END ==
LOC: M SHH 15:05
PROVIDERS: ATTEND Family Medicine
DX: E11.9 Type 2 diabetes mellitus without complications (principal); I10 Essential (primary) hypertension; K76.0 Fatty (change of) liver, not elsewhere classified; E78.2 Mixed hyperlipidemia

== ENCOUNTER → 2023-08-10 | Outpatient (CLI) | payer MEDICARE | LOC: M SOG 09:02 | PROVIDERS: ATTEND Physician Assistant | DX: S72.001D Fracture of unspecified part of neck of right femur, subsequent encounter for closed fracture with routine healing (principal); Z96.641 Presence of right artificial hip joint; Y93.9 Activity, unspecified; Y92.9 Unspecified place or not applicable ==

== ENCOUNTER → 2023-08-14 | Outpatient (REF) | payer MEDICARE | LOC: M SFHCPLAZ 13:38 | PROVIDERS: ATTEND Family Medicine | DX: I50.32 Chronic diastolic (congestive) heart failure (principal); D50.9 Iron deficiency anemia, unspecified; E55.9 Vitamin D deficiency, unspecified ==

== ENCOUNTER 2023-10-17 15:21 | Emergency (ER) | payer MEDICARE ==
[~2023-10-17] VITALS: Ht 175.3 cm; Wt 84.4 kg
[2023-10-17 16:15] LABS: BASO # 0.1 10^3/uL (0.0-0.2); BASO % 0.7 % (0.0-1.0); EOS # 0.2 10^3/uL (0.0-0.5); EOS % 2.3 % (0.0-3.0); LYMPH # 2.9 10^3/uL (1.5-5.0); LYMPH % 30.8 % (24.0-44.0); MEAN CORPUSCULAR HEMOGLOBIN 28.5 pg (27.0-33.0); MEAN CORPUSCULAR HGB CONC 32.6 g/dl (32.0-36.5); MEAN CORPUSCULAR VOLUME 87.6 fl (80.0-96.0); MONO # 0.7 10^3/uL (0.0-0.8); MONO % 7.1 % (2.0-8.0); NEUTROPHILS # 5.6 10^3/uL (1.5-8.5); NEUTROPHILS % 58.9 % (36.0-66.0); PLATELET COUNT, AUTOMATED 276 10^3/uL (150-450); RED BLOOD COUNT 4.91 10^6/uL (4.30-6.10); WHITE BLOOD COUNT 9.5 10^3/uL (4.0-10.0)
[2023-10-17 16:45] LABS: CK-MB VALUE MASS 2.7 NG/ML (<3.6); CREATININE FOR GFR 1.23 MG/DL (0.70-1.30); POTASSIUM SERUM 4.7 MMOL/L (3.5-5.1)
[2023-10-17 16:46] LABS: MB/CK RELATIVE INDEX 3.17 (< OR =4)
[2023-10-17 17:35] LABS: CK-MB VALUE MASS 2.6 NG/ML (<3.6)
[2023-10-17 17:54] LABS: MB/CK RELATIVE INDEX 3.88 (< OR =4)
[2023-10-17 19:11] LABS: CK-MB VALUE MASS 2.8 NG/ML (<3.6)
[2023-10-17 19:18] LABS: MB/CK RELATIVE INDEX 3.58 (< OR =4)
[2023-10-17 19:31] VITALS: BP 139/65; TEMP 98.3; O2SAT 96
== END 2023-10-17 19:49 | disposition home or self-care (01) ==
LOC: EDBD 15:21 → M ED 15:21
DX: R07.9 Chest pain, unspecified (principal); E11.9 Type 2 diabetes mellitus without complications; I25.10 Atherosclerotic heart disease of native coronary artery without angina pectoris; I25.2 Old myocardial infarction; I10 Essential (primary) hypertension; K21.9 Gastro-esophageal reflux disease without esophagitis; N18.30 Chronic kidney disease, stage 3 unspecified; G20.C Parkinsonism, unspecified; F02.80 Dementia in other diseases classified elsewhere, unspecified severity, without behavioral disturbance, psychotic disturbance, mood disturbance, and anxiety; Z95.5 Presence of coronary angioplasty implant and graft; K80.20 Calculus of gallbladder without cholecystitis without obstruction; Z79.82 Long term (current) use of aspirin; Z79.899 Other long term (current) drug therapy; Z88.8 Allergy status to other drugs, medicaments and biological substances; Z91.018 Allergy to other foods

== ENCOUNTER → 2023-12-11 | Outpatient (REF) | payer MEDICARE | LOC: M SFHCPLAZ 18:25 | PROVIDERS: ATTEND Family Medicine | DX: I50.32 Chronic diastolic (congestive) heart failure (principal); D50.9 Iron deficiency anemia, unspecified; E55.9 Vitamin D deficiency, unspecified ==

== ENCOUNTER 2024-05-21 23:23 | Inpatient (IN) | payer MEDICARE ==
[~2024-05-21] VITALS: Ht 175.3 cm; Wt 84.7 kg
[2024-05-21] MEDS ORDERED: ACETAMINOPHEN 325 MG TAB As Ordered ONE (23:50)
[2024-05-21] MEDS: ACETAMINOPHEN 325 MG TAB PO ONE (23:53)
[2024-05-22] MEDS: fentaNYL 100 MCG/2 ML INJECTION IV ONE (06:42)
[2024-05-22 07:29] LABS: BASO % 0.4 % (0.0-1.0); EOS % 0.3 % (0.0-3.0); HEMATOCRIT 37.9 % (42.0-52.0); HEMOGLOBIN 12.8 g/dl (13.5-17.5); LYMPH # 1.4 10^3/uL (1.5-5.0); LYMPH % 12.8 % (24.0-44.0); MEAN CORPUSCULAR HEMOGLOBIN 29.1 pg (27.0-33.0); MEAN CORPUSCULAR HGB CONC 33.8 g/dl (32.0-36.5); MEAN CORPUSCULAR VOLUME 86.1 fl (80.0-96.0); MONO # 0.7 10^3/uL (0.0-0.8); MONO % 6.2 % (2.0-8.0); NEUTROPHILS # 8.8 10^3/uL (1.5-8.5); NEUTROPHILS % 79.9 % (36.0-66.0); PLATELET COUNT, AUTOMATED 237 10^3/uL (150-450)
[2024-05-22 08:07] LABS: BLOOD UREA NITROGEN 29 MG/DL (9-23); CALCIUM LEVEL 8.9 MG/DL (8.3-10.6); CARBON DIOXIDE LEVEL 26 MMOL/L (20-31); CHLORIDE LEVEL 106 MMOL/L (98-107); CREATININE FOR GFR 1.22 MG/DL (0.70-1.30); GLOMERULAR FILTRATION RATE > 60.0 (>35); GLUCOSE, FASTING 105 MG/DL (74-106); POTASSIUM SERUM 4.5 MMOL/L (3.5-5.1); SODIUM LEVEL 139 MMOL/L (136-145)
[2024-05-22] MEDS ORDERED: HOME MED LIST COMPLETE! XX SCH (08:15)
[2024-05-22] MEDS ORDERED: ISOS1TAB35 PO (08:15)
[2024-05-22] MEDS ORDERED: AMLO2.5T3 PO (08:15)
[2024-05-22] MEDS: LIDOCAINE 5% (LIDODERM) PATCH TD SCH (10:30)
[2024-05-22] MEDS: DICLOFENAC EPOLAMINE 1.3% PATCH TOP SCH (11:15)
[2024-05-22] MEDS: ASPIRIN 325 MG TAB PO SCH (11:16)
[2024-05-22] MEDS: ATORVASTATIN 20 MG TAB PO SCH (11:16)
[2024-05-22] MEDS: ISOSORBIDE MON. (IMDUR) 30MG XR TAB PO SCH (11:16)
[2024-05-22] MEDS: METOPROLOL TART 25 MG TABLET PO SCH (11:17)
[2024-05-22] MEDS: SINEMET 25-100 MG TAB PO SCH (14:12)
[2024-05-22] MEDS: ACETAMINOPHEN 325 MG TAB PO SCH (14:12)
[2024-05-22 16:40] VITALS: BP 161/72; TEMP 97.7; O2SAT 96
[2024-05-22 19:28] VITALS: BP 178/88; TEMP 97.7; O2SAT 93
[2024-05-22 20:30] VITALS: BP 144/62
[2024-05-22] MEDS: KETOROLAC 30 MG/ML 1ML VIAL IV ONE (22:55)
[2024-05-23 04:00] VITALS: BP 150/78; TEMP 98.1; O2SAT 95
[2024-05-23 06:20] LABS: HEMATOCRIT 37.3 % (42.0-52.0); HEMOGLOBIN 12.5 g/dl (13.5-17.5); MEAN CORPUSCULAR HEMOGLOBIN 28.8 pg (27.0-33.0); MEAN CORPUSCULAR HGB CONC 33.5 g/dl (32.0-36.5); MEAN CORPUSCULAR VOLUME 85.9 fl (80.0-96.0); PLATELET COUNT, AUTOMATED 225 10^3/uL (150-450); RED BLOOD COUNT 4.34 10^6/uL (4.30-6.10); WHITE BLOOD COUNT 9.4 10^3/uL (4.0-10.0)
[2024-05-23 06:55] LABS: CALCIUM LEVEL 8.8 MG/DL (8.3-10.6); CREATININE FOR GFR 1.41 MG/DL (0.70-1.30); GLOMERULAR FILTRATION RATE 51.1 (>35); POTASSIUM SERUM 4.2 MMOL/L (3.5-5.1)
[2024-05-23] MEDS: KETOROLAC 30 MG/ML 1ML VIAL IV PRN (09:21)
[2024-05-23 12:00] VITALS: BP 136/84; TEMP 97.5; O2SAT 99
[2024-05-23 14:00] VITALS: BP 154/65; TEMP 97.3; O2SAT 97
[2024-05-23 19:50] VITALS: BP 153/65; TEMP 97.3; O2SAT 96
[2024-05-24 04:01] VITALS: BP 181/77; TEMP 97.5; O2SAT 97
[2024-05-24 09:03] VITALS: BP 196/98
[2024-05-24 10:51] VITALS: BP 148/83
[2024-05-24 12:00] VITALS: BP 158/82; TEMP 97.2; O2SAT 95
[2024-05-24 19:51] VITALS: BP 163/77; TEMP 97.5; O2SAT 96
[2024-05-24 20:00] VITALS: BP 163/77; TEMP 97.5
[2024-05-25 04:00] VITALS: BP 154/63; TEMP 97.5; O2SAT 96
[2024-05-25] MEDS: HEPARIN SOD (PORCINE) 5000UNITS/ML 1ML VIAL/SYRINGE SQ SCH (05:56)
[2024-05-25 12:00] VITALS: BP 118/66; TEMP 97.5; O2SAT 96
[2024-05-25 12:31] LABS: HEMATOCRIT 38.9 % (42.0-52.0); MEAN CORPUSCULAR HEMOGLOBIN 29.1 pg (27.0-33.0); MEAN CORPUSCULAR HGB CONC 33.4 g/dl (32.0-36.5); PLATELET COUNT, AUTOMATED 310 10^3/uL (150-450); RED BLOOD COUNT 4.47 10^6/uL (4.30-6.10); WHITE BLOOD COUNT 10.6 10^3/uL (4.0-10.0)
[2024-05-25] MEDS: GABAPENTIN 100 MG CAP PO SCH (12:48)
[2024-05-25 12:57] LABS: CALCIUM LEVEL 8.8 MG/DL (8.3-10.6); CREATININE FOR GFR 1.35 MG/DL (0.70-1.30); GLOMERULAR FILTRATION RATE 53.7 (>35); POTASSIUM SERUM 4.6 MMOL/L (3.5-5.1)
[2024-05-25 16:00] VITALS: BP 131/76
[2024-05-25 20:00] VITALS: BP 142/74; TEMP 97.7; O2SAT 85
[2024-05-26] VITALS (9 sets, daily range): BP systolic 110–146; BP diastolic 60–80; TEMP 97–98.8; O2SAT 84–96
[2024-05-26] MEDS ORDERED: FLUID PLACE HOLDER IV SCH (06:40)
[2024-05-26] MEDS ORDERED: VANCOMYCIN HCL IV SCH (06:40)
[2024-05-26] MEDS: FUROSEMIDE 100MG/10ML VIAL IV ONE (06:42)
[2024-05-26] MEDS: PIPERACILLIN/TAZOBACTAM SOD 3.375 GM in DEXTROSE 5% (D5W) ADV/MINI-BAG 50 ML IV SCH (07:28)
[2024-05-26] MEDS ORDERED: AZITHROMYCIN INJ 500 MG, VIAL MATE ADAPTER 1 EACH in NS 250 ML IV SCH (08:00)
[2024-05-26] MEDS: IPRATROPIUM 0.5MG/ALBUTEROL 2.5MG INH SOL UD 3ML (DUONEB) NEB SCH (08:23)
[2024-05-26 08:37] LABS: HEMATOCRIT 39.9 % (42.0-52.0); HEMOGLOBIN 13.2 g/dl (13.5-17.5); MEAN CORPUSCULAR HEMOGLOBIN 28.9 pg (27.0-33.0); MEAN CORPUSCULAR HGB CONC 33.1 g/dl (32.0-36.5); MEAN CORPUSCULAR VOLUME 87.3 fl (80.0-96.0); PLATELET COUNT, AUTOMATED 324 10^3/uL (150-450); RED BLOOD COUNT 4.57 10^6/uL (4.30-6.10); WHITE BLOOD COUNT 18.5 10^3/uL (4.0-10.0)
[2024-05-26] MEDS: MOM 30ML SUSPENSION UDC PO SCH (09:00)
[2024-05-26 09:06] LABS: CALCIUM LEVEL 8.7 MG/DL (8.3-10.6); CREATININE FOR GFR 1.42 MG/DL (0.70-1.30); GLOMERULAR FILTRATION RATE 50.7 (>35)
[2024-05-26] MEDS: VANCOMYCIN HCL 1,500 MG, VIAL MATE ADAPTER 1 EACH in NS 500 ML IV ONE (09:42)
[2024-05-26] MEDS: PANTOPRAZOLE 40MG VIAL IV SCH (09:42)
[2024-05-26 09:48] LABS: VENOUS BASE EXCESS -3.6 (-2.0-2.0); VENOUS HCO3 19.3 MMOL/L (23.0-27.0); VENOUS O2 SATURATION 97.9 % (60.0-80.0); VENOUS PARTIAL PRESSURE CO2 29.6 mmHg (38.0-50.0); VENOUS PARTIAL PRESSURE O2 100.7 mmHg (30.0-50.0); VENOUS PH 7.433 UNITS (7.330-7.430); VENOUS STANDARD HCO3 21.5 MMOL/L; VENOUS TOTAL CO2 20.2 MMOL/L (24.0-28.0)
[2024-05-26 10:38] LABS: PROCALCITONIN 0.13 ng/ml
[2024-05-26] MEDS: guaiFENesin ER TABLET 600 MG TAB PO SCH (11:00)
[2024-05-26] MEDS ORDERED: LEVALBUTEROL 1.25MG 0.5ML CONCENTRATE NEB NEB PRN (11:25)
[2024-05-26] MEDS: ROPIvacaine 0.5% 30ML VIAL PN ONE (11:45)
[2024-05-26] MEDS: LIDOCAINE 1% SDV 5ML VIAL PN ONE (11:45)
[2024-05-26] MEDS ORDERED: fentaNYL 100 MCG/2 ML INJECTION IV PRN (11:45)
[2024-05-26] MEDS ORDERED: MIDAZOLAM INJ 2MG/2ML VIAL IV PRN (11:45)
[2024-05-26 12:03] LABS: ABG BASE EXCESS -1.2 (-2.0-2.0); ABG HCO3 22.1 MMOL/L (22.0-26.0); ABG O2 SATURATION 94.2 % (95.0-99.0); ABG PARTIAL PRESSURE CO2 32.6 mmHg (35.0-45.0); ABG PARTIAL PRESSURE O2 68.7 mmHg (75.0-100.0); ABG STANDARD HCO3 23.4 MMOL/L. (22.0-26.0); ABG TOTAL CO2 23.1 MMOL/L (23.0-31.0); ABG pH (ARTERIAL) 7.449 UNITS (7.350-7.450)
[2024-05-26 12:19] LABS: CALCIUM LEVEL 8.2 MG/DL (8.3-10.6); CREATININE FOR GFR 1.39 MG/DL (0.70-1.30); POTASSIUM SERUM 4.2 MMOL/L (3.5-5.1)
[2024-05-26] MEDS: LEVALBUTEROL 1.25MG 0.5ML CONCENTRATE NEB NEB SCH (14:00)
[2024-05-26] MEDS: ACETAMINOPHEN *IV* 1,000 MG in IV 1 EA IV SCH (14:33)
[2024-05-27] VITALS (11 sets, daily range): BP systolic 127–171; BP diastolic 58–99; TEMP 97.4–98; O2SAT 94–98
[2024-05-27 04:56] LABS: BASO % 0.3 % (0.0-1.0); EOS # 0.1 10^3/uL (0.0-0.5); EOS % 0.5 % (0.0-3.0); HEMATOCRIT 32.9 % (42.0-52.0); LYMPH # 1.7 10^3/uL (1.5-5.0); LYMPH % 12.5 % (24.0-44.0); MEAN CORPUSCULAR HEMOGLOBIN 28.9 pg (27.0-33.0); MEAN CORPUSCULAR HGB CONC 33.1 g/dl (32.0-36.5); MEAN CORPUSCULAR VOLUME 87.3 fl (80.0-96.0); MONO # 0.6 10^3/uL (0.0-0.8); MONO % 4.2 % (2.0-8.0); NEUTROPHILS # 11.5 10^3/uL (1.5-8.5); NEUTROPHILS % 82.2 % (36.0-66.0); PLATELET COUNT, AUTOMATED 272 10^3/uL (150-450); RED BLOOD COUNT 3.77 10^6/uL (4.30-6.10); WHITE BLOOD COUNT 13.9 10^3/uL (4.0-10.0)
[2024-05-27 04:57] LABS: HEMOGLOBIN 10.9 g/dl (13.5-17.5)
[2024-05-27 05:15] LABS: CALCIUM LEVEL 8.6 MG/DL (8.3-10.6); CREATININE FOR GFR 1.8 MG/DL (0.70-1.30); GLOMERULAR FILTRATION RATE 38.6 (>35); POTASSIUM SERUM 3.9 MMOL/L (3.5-5.1)
[2024-05-27 14:52] LABS: HEMATOCRIT 32.5 % (42.0-52.0); HEMOGLOBIN 10.8 g/dl (13.5-17.5); MEAN CORPUSCULAR HGB CONC 33.2 g/dl (32.0-36.5); MEAN CORPUSCULAR VOLUME 87.1 fl (80.0-96.0); PLATELET COUNT, AUTOMATED 273 10^3/uL (150-450); RED BLOOD COUNT 3.73 10^6/uL (4.30-6.10); WHITE BLOOD COUNT 13.7 10^3/uL (4.0-10.0)
[2024-05-27] MEDS ORDERED: LIDOCAINE 1% MDV 20ML VIAL As Ordered ONE (16:25)
[2024-05-27 18:09] LABS: APPEARANCE, BODY FLUID TURBID (CLEAR); PLEURAL FL COLOR RED (COLORLESS); SOURCE, BODY FLUID PLEURAL
[2024-05-27 18:19] LABS: PH BODY FLUID 7.381 UNITS (NOT ESTABLISHED); SOURCE, BODY FLUID pH PLEURAL
[2024-05-27 18:37] LABS: SOURCE, BODY FLUID ALBUMIN PLEURAL
[2024-05-27 18:42] LABS: SOURCE, BODY FLUID GLUCOSE PLEURAL; SOURCE, BODY FLUID TOT PROTEIN PLEURAL; TOTAL PROTEIN, BODY FLUID 4.5 G/DL (NOT ESTABLISHED)
[2024-05-27 18:43] LABS: LDH, BODY FLUID 494 U/L (NOT ESTABLISHED); SOURCE, BODY FLUID LDH PLEURAL
[2024-05-27 18:44] LABS: AMYLASE, BODY FLUID 33 U/L (NOT ESTABLISHED); CHOLESTEROL, BODY FLUID 76 MG/DL (NOT ESTABLISHED); SOURCE, BODY FLUID AMYLASE PLEURAL; SOURCE, BODY FLUID CHOL PLEURAL
[2024-05-27 18:48] LABS: SOURCE, BODY FLUID TRIG PLEURAL; TRIGLYCERIDE, BODY FLUID 63 MG/DL (NOT ESTABLISHED)
[2024-05-28] VITALS (10 sets, daily range): BP systolic 129–174; BP diastolic 60–129; TEMP 97–97.8; O2SAT 96–100
[2024-05-28 05:07] LABS: BASO % 0.4 % (0.0-1.0); EOS # 0.3 10^3/uL (0.0-0.5); EOS % 2.3 % (0.0-3.0); HEMATOCRIT 31.1 % (42.0-52.0); HEMOGLOBIN 10.2 g/dl (13.5-17.5); LYMPH # 1.7 10^3/uL (1.5-5.0); LYMPH % 15.2 % (24.0-44.0); MEAN CORPUSCULAR HEMOGLOBIN 28.8 pg (27.0-33.0); MEAN CORPUSCULAR HGB CONC 32.8 g/dl (32.0-36.5); MEAN CORPUSCULAR VOLUME 87.9 fl (80.0-96.0); MONO # 0.5 10^3/uL (0.0-0.8); MONO % 4.5 % (2.0-8.0); NEUTROPHILS # 8.4 10^3/uL (1.5-8.5); NEUTROPHILS % 77.2 % (36.0-66.0); PLATELET COUNT, AUTOMATED 269 10^3/uL (150-450); RED BLOOD COUNT 3.54 10^6/uL (4.30-6.10); WHITE BLOOD COUNT 10.9 10^3/uL (4.0-10.0)
[2024-05-28 05:26] LABS: CALCIUM LEVEL 8.4 MG/DL (8.3-10.6); CREATININE FOR GFR 1.49 MG/DL (0.70-1.30); GLOMERULAR FILTRATION RATE 47.9 (>35); POTASSIUM SERUM 3.8 MMOL/L (3.5-5.1)
[2024-05-28] MEDS ORDERED: PILL CUTTER 1 EACH XX PRN (08:55)
[2024-05-28] MEDS ORDERED: ALTEPLASE 2MG/2ML VIAL XX ONE (09:05)
[2024-05-28] MEDS: SENOKOT S TAB PO SCH (09:22)
[2024-05-28] MEDS: oxyCODONE 5MG TAB PO SCH (09:24)
[2024-05-28] MEDS: NS ALTEPLASE RECOMBINANT INTRAPLEU ONE (10:53)
[2024-05-28] MEDS: QUEtiapine FUMARATE 25 MG TAB PO SCH (15:46)
[2024-05-28] MEDS: oxyCODONE 5MG TAB PO ONE (18:02)
[2024-05-28] MEDS: QUEtiapine FUMARATE 12.5 MG HALF-TAB PO SCH (21:39)
[2024-05-29] VITALS: BP 134/64; TEMP 98.4; O2SAT 98
[2024-05-29 04:00] VITALS: BP 168/70; TEMP 97.6; O2SAT 97
[2024-05-29 05:09] LABS: BASO # 0.1 10^3/uL (0.0-0.2); BASO % 0.6 % (0.0-1.0); EOS # 0.4 10^3/uL (0.0-0.5); EOS % 4.1 % (0.0-3.0); HEMATOCRIT 31.7 % (42.0-52.0); LYMPH # 1.6 10^3/uL (1.5-5.0); LYMPH % 15.3 % (24.0-44.0); MEAN CORPUSCULAR HEMOGLOBIN 28.1 pg (27.0-33.0); MEAN CORPUSCULAR HGB CONC 31.5 g/dl (32.0-36.5); MONO # 0.5 10^3/uL (0.0-0.8); MONO % 4.8 % (2.0-8.0); NEUTROPHILS # 7.9 10^3/uL (1.5-8.5); NEUTROPHILS % 74.5 % (36.0-66.0); PLATELET COUNT, AUTOMATED 300 10^3/uL (150-450); RED BLOOD COUNT 3.56 10^6/uL (4.30-6.10); WHITE BLOOD COUNT 10.5 10^3/uL (4.0-10.0)
[2024-05-29 05:31] LABS: CALCIUM LEVEL 8.2 MG/DL (8.3-10.6); CREATININE FOR GFR 1.4 MG/DL (0.70-1.30); GLOMERULAR FILTRATION RATE 51.5 (>35); POTASSIUM SERUM 4.3 MMOL/L (3.5-5.1)
[2024-05-29 08:00] VITALS: BP 137/64; TEMP 97.5; O2SAT 98
[2024-05-29 12:00] VITALS: BP 137/65; TEMP 97.9; O2SAT 98
[2024-05-29 16:00] VITALS: BP 146/66; TEMP 97; O2SAT 97
[2024-05-29 20:24] VITALS: BP 157/68; TEMP 97.6; O2SAT 97
[2024-05-30] VITALS: BP 144/65; TEMP 97.3; O2SAT 98
[2024-05-30 03:57] VITALS: BP 147/66; TEMP 97; O2SAT 94
[2024-05-30 05:19] LABS: BASO # 0.1 10^3/uL (0.0-0.2); BASO % 0.6 % (0.0-1.0); EOS # 0.5 10^3/uL (0.0-0.5); EOS % 5.5 % (0.0-3.0); HEMATOCRIT 31.1 % (42.0-52.0); HEMOGLOBIN 9.8 g/dl (13.5-17.5); LYMPH % 21.5 % (24.0-44.0); MEAN CORPUSCULAR HEMOGLOBIN 28.2 pg (27.0-33.0); MEAN CORPUSCULAR HGB CONC 31.5 g/dl (32.0-36.5); MEAN CORPUSCULAR VOLUME 89.4 fl (80.0-96.0); MONO # 0.6 10^3/uL (0.0-0.8); MONO % 6.3 % (2.0-8.0); NEUTROPHILS # 5.9 10^3/uL (1.5-8.5); NEUTROPHILS % 65.1 % (36.0-66.0); PLATELET COUNT, AUTOMATED 329 10^3/uL (150-450); RED BLOOD COUNT 3.48 10^6/uL (4.30-6.10); WHITE BLOOD COUNT 9.1 10^3/uL (4.0-10.0)
[2024-05-30 05:50] LABS: CALCIUM LEVEL 8.4 MG/DL (8.3-10.6); CREATININE FOR GFR 1.33 MG/DL (0.70-1.30); GLOMERULAR FILTRATION RATE 54.7 (>35); POTASSIUM SERUM 3.9 MMOL/L (3.5-5.1)
[2024-05-30 08:00] VITALS: BP 170/70; TEMP 97.8; O2SAT 92
[2024-05-30 12:00] VITALS: BP 145/74; TEMP 97.6; O2SAT 92
[2024-05-30 16:18] VITALS: BP 146/63; TEMP 96.9; O2SAT 96
[2024-05-30 20:04] VITALS: BP 143/63; TEMP 97.7; O2SAT 91
[2024-05-30] MEDS: AUGMENTIN 875 MG TAB PO SCH (20:20)
[2024-05-31 00:09] VITALS: BP 137/61; TEMP 97.6; O2SAT 97
[2024-05-31 04:01] VITALS: BP 142/64; TEMP 97.2; O2SAT 98
[2024-05-31 05:34] LABS: BASO % 0.3 % (0.0-1.0); EOS # 0.5 10^3/uL (0.0-0.5); EOS % 5.5 % (0.0-3.0); HEMOGLOBIN 9.7 g/dl (13.5-17.5); LYMPH # 2.2 10^3/uL (1.5-5.0); MEAN CORPUSCULAR HGB CONC 31.3 g/dl (32.0-36.5); MEAN CORPUSCULAR VOLUME 89.3 fl (80.0-96.0); MONO # 0.5 10^3/uL (0.0-0.8); MONO % 5.9 % (2.0-8.0); NEUTROPHILS # 5.7 10^3/uL (1.5-8.5); NEUTROPHILS % 63.1 % (36.0-66.0); PLATELET COUNT, AUTOMATED 325 10^3/uL (150-450); RED BLOOD COUNT 3.47 10^6/uL (4.30-6.10); WHITE BLOOD COUNT 9.1 10^3/uL (4.0-10.0)
[2024-05-31 06:05] LABS: BLOOD UREA NITROGEN 16 MG/DL (9-23); CALCIUM LEVEL 8.5 MG/DL (8.3-10.6); CARBON DIOXIDE LEVEL 28 MMOL/L (20-31); CHLORIDE LEVEL 106 MMOL/L (98-107); GLOMERULAR FILTRATION RATE > 60.0 (>35); GLUCOSE, FASTING 85 MG/DL (74-106); POTASSIUM SERUM 4.2 MMOL/L (3.5-5.1); SODIUM LEVEL 141 MMOL/L (136-145)
[2024-05-31 07:27] VITALS: BP 159/74; TEMP 97.6; O2SAT 93
[2024-05-31 13:51] VITALS: BP 156/69; TEMP 97.7; O2SAT 93
[2024-05-31 19:39] VITALS: BP 137/64; TEMP 97.9; O2SAT 92
[2024-06-01] VITALS (8 sets, daily range): BP systolic 119–163; BP diastolic 56–72; TEMP 97–98.4; O2SAT 90–97
[2024-06-01 05:37] LABS: BASO % 0.4 % (0.0-1.0); EOS # 0.6 10^3/uL (0.0-0.5); EOS % 5.6 % (0.0-3.0); HEMATOCRIT 30.7 % (42.0-52.0); HEMOGLOBIN 9.9 g/dl (13.5-17.5); LYMPH # 2.4 10^3/uL (1.5-5.0); LYMPH % 23.8 % (24.0-44.0); MEAN CORPUSCULAR HGB CONC 32.2 g/dl (32.0-36.5); MONO # 0.6 10^3/uL (0.0-0.8); MONO % 5.7 % (2.0-8.0); NEUTROPHILS # 6.4 10^3/uL (1.5-8.5); NEUTROPHILS % 62.5 % (36.0-66.0); PLATELET COUNT, AUTOMATED 341 10^3/uL (150-450); RED BLOOD COUNT 3.41 10^6/uL (4.30-6.10); WHITE BLOOD COUNT 10.2 10^3/uL (4.0-10.0)
[2024-06-01 05:56] LABS: BLOOD UREA NITROGEN 16 MG/DL (9-23); CALCIUM LEVEL 8.3 MG/DL (8.3-10.6); CARBON DIOXIDE LEVEL 26 MMOL/L (20-31); CHLORIDE LEVEL 110 MMOL/L (98-107); CREATININE FOR GFR 1.13 MG/DL (0.70-1.30); GLOMERULAR FILTRATION RATE > 60.0 (>35); GLUCOSE, FASTING 85 MG/DL (74-106); POTASSIUM SERUM 4.2 MMOL/L (3.5-5.1); SODIUM LEVEL 143 MMOL/L (136-145)
[2024-06-01] MEDS: ACETAMINOPHEN 500 MG TAB PO SCH (08:36)
[2024-06-02] VITALS (26 sets, daily range): BP systolic 132–163; BP diastolic 63–74; TEMP 97.3–98; O2SAT 92–98
[2024-06-02 06:32] LABS: CALCIUM LEVEL 8.8 MG/DL (8.3-10.6); CREATININE FOR GFR 1.24 MG/DL (0.70-1.30); GLOMERULAR FILTRATION RATE 59.3 (>35); POTASSIUM SERUM 4.3 MMOL/L (3.5-5.1)
[2024-06-02] MEDS: PANTOPRAZOLE 40MG TAB (PROTONIX) PO SCH (09:34)
[2024-06-02] MEDS ORDERED: traZODone 100 MG TAB PO PRN (11:05)
[2024-06-02] MEDS: oxyCODONE 5MG TAB PO PRN (13:23)
[2024-06-03] VITALS (22 sets, daily range): BP systolic 115–154; BP diastolic 55–70; TEMP 97.4–97.7; O2SAT 90–98
[2024-06-03] MEDS ORDERED: PANT40TA29 PO (15:51)
[2024-06-03] MEDS ORDERED: OXYC-517 PO (15:51)
[2024-06-03] MEDS ORDERED: ACET-683 PO (15:51)
[2024-06-03] MEDS ORDERED: LIDO5TD TD (15:51)
[2024-06-03] MEDS ORDERED: TRAZ-252 PO (17:11)
[2024-06-03] MEDS ORDERED: QUET1TAB17 PO (17:11)
== END 2024-06-03 17:23 | disposition home health service (06) | DRG 183 ==
LOC: M ED 05-22 00:38 → M ED INP 05-22 00:39 → M MS4PR 05-22 16:38 → M MS5PR 05-23 13:45 → OBSVTOIN 05-24 17:41 → M ICU 05-26 12:10 → M PCU 05-30 16:09
PROVIDERS: ADMIT Student in an Organized Health Care Education/Training Program; ATTEND Student in an Organized Health Care Education/Training Program
PROC: B246ZZZ Ultrasonography of Right and Left Heart (ICD-10-PCS; 2024-05-27)
PROC: 0W9930Z Drainage of Right Pleural Cavity with Drainage Device, Percutaneous Approach (ICD-10-PCS; principal; 2024-05-27 14:00)
PROC: 3E0L3GC Introduction of Other Therapeutic Substance into Pleural Cavity, Percutaneous Approach (ICD-10-PCS; 2024-05-28)
DX: S22.41XA Multiple fractures of ribs, right side, initial encounter for closed fracture (principal); A41.9 Sepsis, unspecified organism; J18.9 Pneumonia, unspecified organism; J96.01 Acute respiratory failure with hypoxia; J94.2 Hemothorax; E87.20 Acidosis, unspecified; I13.0 Hypertensive heart and chronic kidney disease with heart failure and stage 1 through stage 4 chronic kidney disease, or unspecified chronic kidney disease; J98.11 Atelectasis; Z66 Do not resuscitate; G25.0 Essential tremor; G20.C Parkinsonism, unspecified; F02.80 Dementia in other diseases classified elsewhere, unspecified severity, without behavioral disturbance, psychotic disturbance, mood disturbance, and anxiety; I12.9 Hypertensive chronic kidney disease with stage 1 through stage 4 chronic kidney disease, or unspecified chronic kidney disease; E11.22 Type 2 diabetes mellitus with diabetic chronic kidney disease; D64.9 Anemia, unspecified; I50.9 Heart failure, unspecified; N18.30 Chronic kidney disease, stage 3 unspecified; I25.10 Atherosclerotic heart disease of native coronary artery without angina pectoris; M06.9 Rheumatoid arthritis, unspecified; E11.42 Type 2 diabetes mellitus with diabetic polyneuropathy; R26.89 Other abnormalities of gait and mobility; W01.0XXA Fall on same level from slipping, tripping and stumbling without subsequent striking against object, initial encounter; Y92.009 Unspecified place in unspecified non-institutional (private) residence as the place of occurrence of the external cause; K21.9 Gastro-esophageal reflux disease without esophagitis; G47.33 Obstructive sleep apnea (adult) (pediatric); G50.0 Trigeminal neuralgia; Z90.49 Acquired absence of other specified parts of digestive tract; Z79.82 Long term (current) use of aspirin; Z79.899 Other long term (current) drug therapy; Z88.8 Allergy status to other drugs, medicaments and biological substances; Z91.018 Allergy to other foods

== ENCOUNTER → 2024-08-08 | Outpatient (CLI) | payer MEDICARE ==
[~2024-08-08] MED LIST changes: +ACET-683 PO; +AMLO2.5T3 PO; +ISOS1TAB35 PO; -ISOS20TA53 PO; +ISOS20TA72 PO; +LIDO5TD TD; +OXYC-517 PO; +PANT40TA29 PO; +QUET1TAB17 PO
[2024-08-08 18:40] LABS: ALBUMIN 3.4 G/DL (3.2-5.2); BILIRUBIN,TOTAL 0.5 MG/DL (0.3-1.2); CALCIUM LEVEL 8.7 MG/DL (8.3-10.6); CREATININE FOR GFR 1.27 MG/DL (0.70-1.30); GLOMERULAR FILTRATION RATE 57.7 (>35); POTASSIUM SERUM 4.1 MMOL/L (3.5-5.1); PTH INTACT 54.4 PG/ML (18.5-88.0); TOTAL PROTEIN 6.9 G/DL (5.7-8.2)
[2024-08-08 18:41] LABS: BASO # 0.1 10^3/uL (0.0-0.2); BASO % 0.9 % (0.0-1.0); EOS # 0.2 10^3/uL (0.0-0.5); EOS % 2.4 % (0.0-3.0); HEMATOCRIT 42.7 % (42.0-52.0); HEMOGLOBIN 12.9 g/dl (13.5-17.5); LYMPH # 2.5 10^3/uL (1.5-5.0); LYMPH % 26.1 % (24.0-44.0); MEAN CORPUSCULAR HEMOGLOBIN 27.3 pg (27.0-33.0); MEAN CORPUSCULAR HGB CONC 30.2 g/dl (32.0-36.5); MEAN CORPUSCULAR VOLUME 90.5 fl (80.0-96.0); MONO # 0.6 10^3/uL (0.0-0.8); MONO % 5.8 % (2.0-8.0); NEUTROPHILS # 6.1 10^3/uL (1.5-8.5); NEUTROPHILS % 64.5 % (36.0-66.0); PLATELET COUNT, AUTOMATED 337 10^3/uL (150-450); RED BLOOD COUNT 4.72 10^6/uL (4.30-6.10); TOTAL 25(OH) VITAMIN D 59.7 NG/ML (20.0-100.0); WHITE BLOOD COUNT 9.5 10^3/uL (4.0-10.0)
== END ==
LOC: M WUC 10:59
PROVIDERS: ATTEND Family Medicine
DX: D50.9 Iron deficiency anemia, unspecified (principal); I50.32 Chronic diastolic (congestive) heart failure; E55.9 Vitamin D deficiency, unspecified

== ENCOUNTER → 2024-08-08 | Outpatient (CLI) | payer MEDICARE ==
[2024-08-08 18:37] LABS: ALBUMIN 3.4 G/DL (3.2-5.2); BILIRUBIN,TOTAL 0.5 MG/DL (0.3-1.2); CALCIUM LEVEL 8.9 MG/DL (8.3-10.6); CREATININE FOR GFR 1.28 MG/DL (0.70-1.30); GLOMERULAR FILTRATION RATE 57.1 (>35); POTASSIUM SERUM 4.2 MMOL/L (3.5-5.1)
[2024-08-08 18:39] LABS: FERRITIN 35.4 NG/ML (10.5-307.3)
[2024-08-08 18:40] LABS: BASO # 0.1 10^3/uL (0.0-0.2); BASO % 0.9 % (0.0-1.0); EOS # 0.2 10^3/uL (0.0-0.5); EOS % 2.3 % (0.0-3.0); HEMATOCRIT 42.8 % (42.0-52.0); HEMOGLOBIN 13.1 g/dl (13.5-17.5); LYMPH # 2.4 10^3/uL (1.5-5.0); LYMPH % 25.2 % (24.0-44.0); MEAN CORPUSCULAR HEMOGLOBIN 27.5 pg (27.0-33.0); MEAN CORPUSCULAR HGB CONC 30.6 g/dl (32.0-36.5); MEAN CORPUSCULAR VOLUME 89.9 fl (80.0-96.0); MONO # 0.6 10^3/uL (0.0-0.8); MONO % 5.8 % (2.0-8.0); NEUTROPHILS # 6.2 10^3/uL (1.5-8.5); NEUTROPHILS % 65.5 % (36.0-66.0); PLATELET COUNT, AUTOMATED 335 10^3/uL (150-450); RED BLOOD COUNT 4.76 10^6/uL (4.30-6.10); WHITE BLOOD COUNT 9.5 10^3/uL (4.0-10.0)
== END ==
LOC: M WUC 10:54
PROVIDERS: ATTEND Physician Assistant Medical
DX: D50.9 Iron deficiency anemia, unspecified (principal); I11.0 Hypertensive heart disease with heart failure; N18.31 Chronic kidney disease, stage 3a; J18.9 Pneumonia, unspecified organism; E55.9 Vitamin D deficiency, unspecified

== ENCOUNTER → 2025-02-13 | Outpatient (CLI) | payer MEDICARE ==
[~2025-02-13] MED LIST changes: -PREG50CA PO; +PREG50CA87 PO
[2025-02-13 12:19] LABS: BASO # 0.1 10^3/uL (0.0-0.2); BASO % 0.9 % (0.0-1.0); EOS # 0.2 10^3/uL (0.0-0.5); EOS % 2.2 % (0.0-3.0); LYMPH # 2.2 10^3/uL (1.5-5.0); LYMPH % 26.1 % (24.0-44.0); MONO # 0.6 10^3/uL (0.0-0.8); MONO % 7.2 % (2.0-8.0); NEUTROPHILS # 5.4 10^3/uL (1.5-8.5); NEUTROPHILS % 63.4 % (36.0-66.0); PLATELET COUNT, AUTOMATED 287 10^3/uL (150-450)
[2025-02-13 12:28] LABS: ALT/SGPT 13.0 U/L (7.0-40); AST/SGOT 18.0 U/L (<34); CALCIUM LEVEL 9.3 MG/DL (8.3-10.6); CARBON DIOXIDE LEVEL 29.0 MMOL/L (20-31); CHLORIDE LEVEL 108.0 MMOL/L (98-107); CHOLESTEROL LEVEL 112.0 MG/DL (<200); CHOLESTEROL RISK RATIO 2.51 (<5); CREATININE FOR GFR 1.38 MG/DL (0.70-1.30); GLOMERULAR FILTRATION RATE 50.7 (>35); LDL CHOLESTEROL 52.2 MG/DL (<100); MAGNESIUM LEVEL 1.5 MG/DL (1.8-2.4); NON-HDL-C 67.4 MG/DL; POTASSIUM SERUM 4.9 MMOL/L (3.5-5.1); SODIUM LEVEL 148.0 MMOL/L (136-145); TRIGLYCERIDES LEVEL 76.0 MG/DL (<150)
[2025-02-13 12:29] LABS: FREE T4 1.01 NG/DL (0.89-1.76); VITAMIN B12 LEVEL 867.0 PG/ML (211-911)
[2025-02-13 12:34] LABS: INR 0.96
== END ==
LOC: M WUC 08:50
PROVIDERS: ATTEND Family Medicine
DX: D50.9 Iron deficiency anemia, unspecified (principal); I50.32 Chronic diastolic (congestive) heart failure; K74.00 Hepatic fibrosis, unspecified; E78.2 Mixed hyperlipidemia